=== PATIENT | male | born 1945 | race Caucasian/White ===

== ENCOUNTER → 2016-10-28 | Outpatient (CLI) | payer MEDICARE, OTHER ==
[2016-10-28 12:26] LABS: Basophils # (auto) 0 uL; Basophils % (auto) 0.4 % (0.0-2.0); Eosinophils # (auto) 0.3 uL; Eosinophils % (auto) 4.6 % (0.0-7.0); Hematocrit 44.6 % (41.0-53.0); Hemoglobin 14.5 g/dL (13.5-17.5); Lymphocytes # (auto) 1.3 uL; Lymphocytes % (auto) 22.3 % (10.0-50.0); Mean Corpuscular Hemoglobin 30.3 pg (28.0-32.0); Mean Corpuscular Hgb Conc. 32.5 g/dL (32.0-36.0); Mean Corpuscular Volume 93.1 fL (80.0-100.0); Mean Platelet Volume 9.5 fL (7.4-10.4); Monocytes # (auto) 0.3 uL; Monocytes % (auto) 5.1 % (0.0-12.0); Neutrophils # (auto) 3.8 uL; Neutrophils % (auto) 67.6 % (37.0-80.0); Platelet Count (auto) 248 10^3/uL (140-450); Red Cell Distribution Width 13.5 % (11.6-16.0); White Blood Cell 5.7 10^3/uL (4.4-10.8)
[2016-10-28 12:27] LABS: Urine Bilirubin Negative (Negative); Urine Blood Negative /uL (Negative); Urine Color Yellow (Yellow); Urine Glucose Normal (Normal); Urine Ketone Negative (Negative); Urine Nitrite Negative (Negative); Urine Urobilinogen Normal (Negative); Urine pH 5.5 (5.0-8.0)
[2016-10-28 12:46] LABS: Albumin 3.4 g/dL (3.4-5.0); BUN/Creatinine Ratio 18.4; Bilirubin, Direct 0.2 mg/dL (0-0.2); Bilirubin, Total 0.7 mg/dL (0.2-1.0); Calcium 8.5 mg/dL (8.5-10.1); Potassium 4.6 mmol/L (3.5-5.1)
== END | disposition home or self-care (01) ==
LOC: LAB 08:05
PROVIDERS: ATTEND Internal Medicine Cardiovascular Disease
DX: I10 Essential (primary) hypertension (principal); E78.00 Pure hypercholesterolemia, unspecified; K74.1 Hepatic sclerosis; E11.9 Type 2 diabetes mellitus without complications; R97.20 Elevated prostate specific antigen [PSA]; R53.81 Other malaise; E03.9 Hypothyroidism, unspecified; D64.9 Anemia, unspecified; E55.9 Vitamin D deficiency, unspecified; N39.0 Urinary tract infection, site not specified
CPT/HCPCS: 36415; 80048; 80061; 80076; 81003; 82306; 83036; 84153; 84403; 84443; 85025

== ENCOUNTER → 2016-12-14 | Outpatient (CLI) | payer MEDICARE, OTHER ==
[2016-12-14 13:59] LABS: Albumin 3.3 g/dL (3.4-5.0); Bilirubin, Direct 0.1 mg/dL (0-0.2); Bilirubin, Total 0.5 mg/dL (0.2-1.0); Total Protein 6.5 g/dL (6.4-8.2)
== END | disposition home or self-care (01) ==
LOC: LAB 08:58
PROVIDERS: ATTEND Internal Medicine Cardiovascular Disease
DX: E78.00 Pure hypercholesterolemia, unspecified (principal); K74.1 Hepatic sclerosis
CPT/HCPCS: 36415; 80061; 80076

== ENCOUNTER → 2019-08-09 | Outpatient (CLI) | payer MEDICARE ==
[2019-08-09 13:05] LABS: Albumin 3.4 g/dL (3.4-5.0); Bilirubin, Direct 0.2 mg/dL (0-0.2); Bilirubin, Total 0.8 mg/dL (0.2-1.0); Total Protein 6.6 g/dL (6.4-8.2)
== END | disposition home or self-care (01) ==
LOC: LAB 08:04
PROVIDERS: ATTEND Internal Medicine
DX: E78.5 Hyperlipidemia, unspecified (principal)
CPT/HCPCS: 36415; 80061; 80076

== ENCOUNTER 2024-12-02 05:37 | Inpatient (IN) | payer MEDICARE ==
[~2024-12-02] VITALS: Ht 177.8 cm; Wt 70.6 kg
[2024-12-02] MEDS: SODIUM CHLORIDE 0.9% 1,000 ML IV ONE ×2 (06:58→09:31)
[2024-12-02] MEDS: ASPirin 81 mg TAB PO ONE (06:59)
--- NOTE | 2024-12-02 07:16 | ED.PDOC ---
SOB-HPI HPI Comments 79M presents to the ER in a wheelchair being pushed by spouse and the w/ no prior MHx for which the c/c of SOB. Pt reports that he has been having SOB w/ dizziness since Wednesday of 11/29/24 and stated on not being able to lay down due from SOB worsening as well as not being able to sleep from the sleep worsening the SOB. They are a poor Hx. Denies chills, fever, N/V/D, CP. Denies any other associated symptom's, modifiers, or recent injuries or sick contact at this time. Chief Complaint: Shortness of Breath Time Seen by MD: 06:45 Reviewed notes: Nurses Notes, Medications, Allergies Information Source: Patient, Spouse Mode of Arrival: Wheelchair Severity: Moderate Timing: Days Duration: Since onset, Days Context: At Rest, While Asleep PE Risk Factors: None History of: None Prehospital treatment: None Modifying Factors: Laying flat, Rest Associated Signs and Symptoms: None If cough with SOB: Non-Productive Past Medical History PAST MEDICAL HISTORY: Denies Surgical History: Denies all surgeries Family History Family History: Reviewed,noncontributory to illness, Unknown Social History Smoker: Non-Smoker Alcohol: Denies ETOH Use Drugs: Denies Drug Use Lives In: Home Constitutional: denies: chills, diaphoresis, fatigue, fever, malaise, sweats, weakness, others EENTM: denies: blurred vision, double vision, ear bleeding, ear discharge, ear drainage, ear pain, ear ringing, eye pain, eye redness, hearing loss, mouth pain, mouth swelling, nasal discharge, nose bleeding, nose congestion, nose pain, photophobia, tearing, throat pain, throat swelling, voice changes, others Respiratory: reports: SOB at rest, shortness of breath; denies: cough, hemoptysis, orthopnea, SOB with excertion, stridor, wheezing, others Cardiovascular: denies: chest pain, dizzy spells, diaphoresis, Dyspnea on exertion, edema, irregular heart beat, left arm pain, lightheadedness, palpitations, PND, syncope, others Gastrointestinal: denies: abdomen distended, abdominal pain, blood streaked bowels, constipated, diarrhea, dysphagia, difficulty swallowing, hematemesis, melena, nausea, poor appetite, poor fluid intake, rectal bleeding, rectal pain, vomiting, others Genitourinary: denies: burning, dysuria, flank pain, frequency, hematuria, incontinence, penile discharge, penile sore, pain, testicle pain, testicle swelling, urgency, others Neurological: reports: dizziness; denies: fainting, headache, left sided numbness, left sided weakness, numbness, paresthesia, pre-existing deficit, right sided numbness, right sided weakness, seizure, speech problems, tingling, tremors, weakness, others Musculoskeletal: denies: back pain, gout, joint pain, joint swelling, muscle pain, muscle stiffness, neck pain, others Integumetry: denies: bruises, change in color, change in hair/nails, dryness, laceration, lesions, lumps, rash, wounds, others Allergic/Immunocompromised: denies: Difficulty Healing, Frequent Infections, Hives, Itching, others Hematologic/Lymphatic: denies: anemia, blood clots, easy bleeding, easy bruising, swollen glands, others Endocrine: denies: excessive hunger, excessive sweating, excessive thirst, excessive urination, flushing, intolerance to cold, intolerance to heat, unexp lained weight gain, unexplained weight loss, others Psychiatric: denies: anxiety, bipolar disorder, depression, hopeless, panic disorder, schizophrenia, sleepless, suicidal, others All Other Systems: Reviewed and Negative Physical Exam General Appearance: Moderate Distress, Normal HEENT: Normal ENT Inspection, PERRL/EOMI, Pharynx Normal, TMs Normal Neck: Full Range of Motion, Non-Tender, Normal, Normal Inspection Respiratory: Chest Non-Tender, Decreased Breath Sounds, Expiration, Inspiration , No Accessory Muscle Use, Normal Breath Sounds, Respiratory Distress, Rhonchi Cardiovascular: No Edema, No JVD, No Murmur, No Gallop, Normal Peripheral Pulses, Regular Rate/Rhythm, Tachycardia Breast Exam: Deferred Gastrointestinal: No Organomegaly, Non Tender, No Pulsatile Mass, Normal Bowel Sounds, Soft Genitalia: Deferred Pelvic: Deferred Rectal: Deferred Extremities: No calf tenderness, Normal capillary refill, Normal inspection, Normal range of motion, Non-tender, No pedal edema Musculoskeletal : Apperance: Normal Neurologic: Alert, net making supervisor II-XII nml as Tested, No Motor Deficits, Normal Affect, Normal Mood, No Sensory Deficits Cerebellar Function: Normal Reflexes: Normal Skin: Dry, Normal Color, Warm Peripheral Pulses: 1+ carotid (R), 1+ carotid (L) Lymphatic: No Adenopathy EKG EKG : Pulse Rate (adult): 101 [place]: Normal Cardiac Rhythm: NSR, PAC's Was a procedure done? Was a procedure done?: No Differential Dx Differential Diagnosis: Anxiety, CHF, COPD, Dysrhythmia, Hypertension, Hyperventilation, Hyponatremia, Pneumonia, Pulmonary Embolism, Respiratory Distress X-Ray, Labs, Meds, VS Vital Signs Date Time Temp Pulse Resp B/P (MAP) Pulse Ox O2 Delivery O2 Flow Rate FiO2 12/02/24 08:40 Nasal Cannula* 2 28 12/02/24 08:40 Nasal Cannula* 2 28 12/02/24 08:20 101 12/02/24 07:37 66 18 99 Nasal Cannula 2.0 12/02/24 07:37 66 18 129/93 (105) 99 12/02/24 07:05 98.3 59 17 97/59 (72) 96 98.3 12/02/24 05:45 97.1 68 16 128/110 (116) 95 97.1 Lab Test 12/02/24 07:20 Range/Units White Blood Count 11.6 H 4.4-10.8 10^3/uL Red Blood Count 5.25 4.5-5.90 10^6/uL Hemoglobin 16.0 13.5-17.5 g/dL Hematocrit 48.5 41.0-53.0 % Mean Corpuscular Volume 92.3 80.0-100.0 fL Mean Corpuscular Hemoglobin 30.4 28.0-32.0 pg Mean Corpuscular Hemoglobin Concent 32.9 32.0-36.0 g/dL Red Cell Distribution Width 13.7 11.8-14.3 % Platelet Count 219 140-450 10^3/uL Mean Platelet Volume 8.6 6.9-10.8 fL Neutrophils (%) (Auto) 83.9 H 37.0-80.0 % Lymphocytes (%) (Auto) 9.3 L 10.0-50.0 % Monocytes (%) (Auto) 5.5 0.0-12.0 % Eosinophils (%) (Auto) 0.8 0.0-7.0 % Basophils (%) (Auto) 0.5 0.0-2.0 % Neutrophils # (Auto) 9.7 H 1.6-8.6 10 ^3/uL Lymphocytes # (Auto) 1.1 0.4-5.4 10 ^3/uL Monocytes # (Auto) 0.6 0-1.3 10 ^3/uL Eosinophils # (Auto) 0.1 0-0.8 10 ^3/uL Basophils # (Auto) 0.1 0-0.2 10 ^3/uL Nucleated Red Blood Cells 0.1 % Prothrombin Time 11.0 9.3-11.8 sec Prothrombin Time INR 1.04 0.9-1.15 Activated Partial Thromboplast Time 27.6 24.5-34.5 SEC D-Dimer, Quantitative 20.44 H 0.0-0.49 mg/L FEU Sodium Level 137 136-145 mmol/L Potassium Level 4.9 3.5-5.1 mmol/L Chloride Level 106 98-107 mmol/L Carbon Dioxide Level 22 20-31 mmol/L Anion Gap 9 5-15 Blood Urea Nitrogen 20 9-23 mg/dL Creatinine 1.66 H 0.700-1.30 mg/dL Glomerular Filtration Rate Calc 41 >90 mL/min BUN/Creatinine Ratio 12.0 10.0-20.0 Serum Glucose 145 H 74-106 mg/dL Calcium Level 9.6 8.7-10.4 mg/dL Magnesium Level 2.0 1.6-2.6 mg/dL Total Bilirubin 0.7 0.2-1.0 mg/dL Aspartate Amino Transferase (AST) 14 13-40 U/L Alanine Aminotransferase (ALT) < 9 7-40 U/L Alkaline Phosphatase 87 46-116 U/L Troponin I High Sensitivity 372 *H </=54 ng/L B-Type Natriuretic Peptide 283.09 0-100 pg/mL Total Protein 7.4 5.7-8.2 g/dL Albumin 4.4 3.2-4.8 g/dL Current Medications Medications (Trade) Dose Ordered Sig/Artemio Route Start Time Stop Time Status Last Admin Aspirin 162 mg ONCE ONCE PO 12/02/24 06:45 12/02/24 06:48 DC 12/02/24 06:59 Sodium Chloride 1,000 ml @ 30 mls/hr Q24H ONCE IV 12/02/24 09:30 12/03/24 09:29 12/02/24 09:31 X-Ray, Labs, Meds, VS Comment Course in the emergency department eventful patient came in complaining of shortness of breath with a past three days with a dizziness and active the orthopnea blood pressure 128/110 Chest x-ray is normal EKG shows sinus tachycardia at 1:[address] with multiple PACs CT angiogram shows multiple pulmonary embolism CBC [id number] with 84% neutrophils normal H&H CMP GFR at 41 rest normal Troponin 372 elevated BNP 283.09 Magnesium 2.0 INR 1.07 D-dimer 20 four for Patient will be admitted to ICU for further care Time of 1ST Reevaluation: 07:15 Reevaluation 1ST: Unchanged Reevaluation 2ND: Unchanged Patient Education/Counseling: Diagnosis, Treatment, Prognosis Family Education/Counseling: Diagnosis, Treatment, Prognosis Departure 1 Departure Time of Disposition: 09:41 Impression: Primary Impression: Acute dyspnea Additional Impressions: Pulmonary embolism Qualified Codes: I26.94 - Multiple subsegmental thrombotic pulmonary emboli without acute cor pulmonale Elevated troponin I level Elevated d-dimer Disposition: ADMITTED INPATIENT Admit to: ICU Condition: Critical Critical Care Note Critical Care Time?: Yes (30 min-critical care time only) Stability Stability form required: Yes Unstable for transfer: ICU, CCU, PCU, FLOR (Intensive VS monitoring), Requires medication (Requires Med for stabilization) Heart Score Heart Score: Heart Score Response (Comments) Value History Moderate Suspicious 1 EKG Repolarization Disturb 1 Age >65 2 Risk Factors 1 or 2 risk factors 1 Troponin >3 x's Normal limit 2 Total 7 I personally scribed for JOHN THOMAS MD ([email or web address]) on 12/02/24 at 07:16. Electronically submitted by Rodrigo Piedra ([email or web address]). JOHN THOMAS MD December 02, 2024 07:16
--- NOTE | 2024-12-02 07:30 | DVH ---
EXAM: XR Chest, 2 Views CLINICAL INDICATION: sob TECHNIQUE: Frontal and lateral views of the chest. COMPARISON: None FINDINGS: LUNGS AND PLEURAL SPACES: Unremarkable. No consolidation. No pneumothorax. HEART: Unremarkable. No cardiomegaly. MEDIASTINUM: Unremarkable. Normal mediastinal contour. BONES/JOINTS: Unremarkable. No acute fracture. OTHER FINDINGS: . IMPRESSION: No acute cardiopulmonary process.
[2024-12-02 07:37] LABS: Basophils # (auto) 0.1 10 ^3/uL (0-0.2); Basophils % (auto) 0.5 % (0.0-2.0); Eosinophils # (auto) 0.1 10 ^3/uL (0-0.8); Eosinophils % (auto) 0.8 % (0.0-7.0); Hematocrit 48.5 % (41.0-53.0); Lymphocytes # (auto) 1.1 10 ^3/uL (0.4-5.4); Lymphocytes % (auto) 9.3 % (10.0-50.0); Mean Corpuscular Hemoglobin 30.4 pg (28.0-32.0); Mean Corpuscular Hgb Conc. 32.9 g/dL (32.0-36.0); Mean Corpuscular Volume 92.3 fL (80.0-100.0); Monocytes # (auto) 0.6 10 ^3/uL (0-1.3); Monocytes % (auto) 5.5 % (0.0-12.0); Neutrophils # (auto) 9.7 10 ^3/uL (1.6-8.6); Neutrophils % (auto) 83.9 % (37.0-80.0); Nucleated Red Blood Cells % 0.1 %; Platelet Count (auto) 219 10^3/uL (140-450); Red Blood Cells 5.25 10^6/uL (4.5-5.90); Red Cell Distribution Width 13.7 % (11.8-14.3); White Blood Cell 11.6 10^3/uL (4.4-10.8)
[2024-12-02 07:49] LABS: Alanine Aminotransferase < 9 U/L (7-40); Albumin 4.4 g/dL (3.2-4.8); Alkaline Phosphatase 87 U/L (46-116); Anion Gap 9 (5-15); Aspartate Aminotransferase 14 U/L (13-40); Bilirubin, Total 0.7 mg/dL (0.2-1.0); Blood Urea Nitrogen 20 mg/dL (9-23); Calcium 9.6 mg/dL (8.7-10.4); Carbon Dioxide 22 mmol/L (20-31); Chloride 106 mmol/L (98-107); Glucose 145 mg/dL (74-106); Potassium 4.9 mmol/L (3.5-5.1); Sodium 137 mmol/L (136-145); Total Protein 7.4 g/dL (5.7-8.2)
[2024-12-02 07:57] LABS: INR 1.04 (0.9-1.15); Partial Thromboplastin Time 27.6 SEC (24.5-34.5)
[2024-12-02] MEDS: IOHEXOL 350 MG/ML 100ML IJ ONE (09:01)
[2024-12-02] MEDS ORDERED: ACETAMINOPHEN 325 MG TAB PO PRN (09:30)
[2024-12-02] MEDS ORDERED: MORPHINE SULFATE INJ 2 MG/ml SYRG IV PRN ×2 (09:30)
[2024-12-02] MEDS ORDERED: ONDANSETRON HCL 4 MG/2 ML VIAL IV PRN (09:30)
[2024-12-02] MEDS ORDERED: NITROGLYCERIN 0.4 MG SL TAB SL PRN (09:30)
[2024-12-02] MEDS ORDERED: HYDROcodone-ACET 5/325MG TAB PO PRN (09:30)
--- NOTE | 2024-12-02 09:31 | DVH ---
EXAM: CT Angiography Chest With Intravenous Contrast CLINICAL INDICATION: Pulmonary embolism TECHNIQUE: Axial computed tomographic angiography images of the chest with intravenous contrast. is CT exam was performed using one or more of the following dose reduction techniques: automated exp osure control, adjustment of the mA and/or kV according to patient size, and/or use of iterative ofelia nstruction technique. MIP reconstructed images were created and reviewed. CONTRAST: RADIATION DOSE: CTDIvol = 20.72 mGy, DLP = 342.36 mGy-cm COMPARISON: None FINDINGS: PULMONARY ARTERIES: Multiple bilateral pulmonary emboli. AORTA: No acute findings. No thoracic aortic aneurysm. LUNGS AND PLEURAL SPACES: Emphysema/COPD. No mass. No consolidation. No significant effusion. N o pneumothorax. HEART: Unremarkable. No cardiomegaly. No significant pericardial effusion. No evidence of RV dys function. MEDIASTINUM: Scattered mediastinal lymph nodes some of which are upper limits of normal in size and are most likely reactive lymph nodes. BONES/JOINTS: No acute fracture. No dislocation. SOFT TISSUES: Unremarkable. LYMPH NODES: See above. OTHER FINDINGS: . . IMPRESSION: 1. Multiple bilateral pulmonary emboli. 2. Scattered mediastinal lymph nodes some of which are upper limits of normal in size and are most l ikely reactive lymph nodes. Findings were discussed with Dr. Huff by phone on 12/02/2024 at 9:29 a.m..
[2024-12-02] MEDS ORDERED: HEPARIN DRIP/D5W 100UNITS/ML 250 ML IV SCH (09:45)
[2024-12-02] MEDS: HEPARIN SODIUM (PORCINE) 5000 UNITS/ML 1ML VIAL IV ONE (09:45)
[2024-12-02] MEDS: AZITHROMYCIN 500MG/ 250ML 250 ML IV SCH (10:00)
--- NOTE | 2024-12-02 10:09 | CONS ---
Pharmacy Clinical Information: HEPARIN DRIP INITIATED AT RATE 1300 UNITS/HR = 13 ML/HR PER PATIENT WEIGHT 7 4.8KG (BED SCALE), PE PROTOCOL CONFIRMED WITH TIFFANY BOONE APTT DRAW SCHEDULED FOR 1600 PER RX PROTOCOL REDD ZENG PHARMACIST December 02, 2024 10:09
--- NOTE | 2024-12-02 10:45 | DVHHP2 ---
History of Present Illness Reason for Visit: SOB History of Present Illness Saud Zelaya is an 79-year-old male with no past medical history who presents to the ED with shortness of breath since Wednesday. Patient reports that he is unable to sleep and lie down flat due to the shortness of breath as well as walk as he gets winded pretty quickly. Patient's brought him in in a wheelchair. Patient reports that he does not use oxygen at home however upon examination patient on 2 L nasal cannula. Patient also has not been to a PCP in the last 5 years. Patient reports that his dad from liver cancer in his sister also had lung cancer and at the age of 22. Patient's also states that he only takes multivitamins. Patient's spouse also at the bedside. Patient reports that he was in the [place]. Patient denies any chest pain, recent sick contacts, recent travels, recent ingestion of spoiled food, recent trauma or injury, abdominal pain, nausea, vomiting, diarrhea, lightheadedness, weakness, or dizziness. Patient reported that he has epistaxis in his right naris once per month and has pressure in his head when he does get them. However currently he is not complaining of these symptoms. Past Surgical History: None Family History: Cancer, Other (Dad with liver cancer and . Sister with the lung cancer and .) Smoke: No ALCOHOL: none Drugs: None Lives: with Family Domestic Violence: Neg Review of Systems Respiratory: Shortness of breath Allergies: Coded Allergies: NO KNOWN ALLERGIES (Unverified , 12/02/24) Medications Current Medications Medications Dose Ordered Sig/Artemio Route Start Time Stop Time Status Last Admin Dose Admin Heparin Sodium/ Dextrose 250 ml @ 12.87 mls/ hr [id number] IV 12/02/24 09:45 UNV Heparin Sodium/ Dextrose 250 ml @ 13 mls/hr [id number] IV 12/02/24 10:15 Acetaminophen/ Hydrocodone Bitart 1 tab Q4HP PRN PO 12/02/24 09:30 UNV Ondansetron HCl 4 mg Q4HP PRN IV 12/02/24 09:30 UNV Acetaminophen 650 mg Q6HP PRN PO 12/02/24 09:30 UNV Morphine Sulfate 2 mg Q4HPRN PRN IV 12/02/24 09:30 UNV Nitroglycerin 0.4 mg Q5MINP PRN SL 12/02/24 09:30 UNV Morphine Sulfate 2 mg Q30M PRN IV 12/02/24 09:30 UNV Ceftriaxone Sodium 50 ml @ 100 mls/hr DAILY@09 IV 12/02/24 09:30 UNV Azithromycin 250 ml @ 125 mls/hr DAILY IV 12/02/24 09:30 UNV Exam Vital Signs Vital Signs Date Time Temp Pulse Resp B/P (MAP) Pulse Ox O2 Delivery O2 Flow Rate FiO2 12/02/24 09:44 101 12/02/24 08:40 Nasal Cannula* 2 28 12/02/24 07:37 18 99 12/02/24 07:37 129/93 (105) 12/02/24 07:05 98.3 98.3 General Appearance: Alert, Oriented X3, Cooperative, mild distress HEENT: Atraumatic, PERRLA, EOMI, Mucous membr. moist/pink Respiratory: Normal air movement Cardiovascular: Normal S1, Normal S2, No murmurs Abdominal: Soft Extremities: Normal pulses Skin: No significant lesion Neuro: Normal gait, Normal speech, Normal tone, Sensation intact Psych/Mental Status: Mental status NL, Mood NL Labs/Xrays Labs Test 12/02/24 07:20 Range/Units White Blood Count 11.6 H 4.4-10.8 10^3/uL Red Blood Count 5.25 4.5-5.90 10^6/uL Hemoglobin 16.0 13.5-17.5 g/dL Hematocrit 48.5 41.0-53.0 % Mean Corpuscular Volume 92.3 80.0-100.0 fL Mean Corpuscular Hemoglobin 30.4 28.0-32.0 pg Mean Corpuscular Hemoglobin Concent 32.9 32.0-36.0 g/dL Red Cell Distribution Width 13.7 11.8-14.3 % Platelet Count 219 140-450 10^3/uL Mean Platelet Volume 8.6 6.9-10.8 fL Neutrophils (%) (Auto) 83.9 H 37.0-80.0 % Lymphocytes (%) (Auto) 9.3 L 10.0-50.0 % Monocytes (%) (Auto) 5.5 0.0-12.0 % Eosinophils (%) (Auto) 0.8 0.0-7.0 % Basophils (%) (Auto) 0.5 0.0-2.0 % Neutrophils # (Auto) 9.7 H 1.6-8.6 10 ^3/uL Lymphocytes # (Auto) 1.1 0.4-5.4 10 ^3/uL Monocytes # (Auto) 0.6 0-1.3 10 ^3/uL Eosinophils # (Auto) 0.1 0-0.8 10 ^3/uL Basophils # (Auto) 0.1 0-0.2 10 ^3/uL Nucleated Red Blood Cells 0.1 % Prothrombin Time 11.0 9.3-11.8 sec Prothrombin Time INR 1.04 0.9-1.15 Activated Partial Thromboplast Time 27.6 24.5-34.5 SEC D-Dimer, Quantitative 20.44 H 0.0-0.49 mg/L FEU Sodium Level 137 136-145 mmol/L Potassium Level 4.9 3.5-5.1 mmol/L Chloride Level 106 98-107 mmol/L Carbon Dioxide Level 22 20-31 mmol/L Anion Gap 9 5-15 Blood Urea Nitrogen 20 9-23 mg/dL Creatinine 1.66 H 0.700-1.30 mg/dL Glomerular Filtration Rate Calc 41 >90 mL/min BUN/Creatinine Ratio 12.0 10.0-20.0 Serum Glucose 145 H 74-106 mg/dL Calcium Level 9.6 8.7-10.4 mg/dL Magnesium Level 2.0 1.6-2.6 mg/dL Total Bilirubin 0.7 0.2-1.0 mg/dL Aspartate Amino Transferase (AST) 14 13-40 U/L Alanine Aminotransferase (ALT) < 9 7-40 U/L Alkaline Phosphatase 87 46-116 U/L Troponin I High Sensitivity 372 *H </=54 ng/L B-Type Natriuretic Peptide 283.09 0-100 pg/mL Total Protein 7.4 5.7-8.2 g/dL Albumin 4.4 3.2-4.8 g/dL EXAM: CT Angiography Chest With Intravenous Contrast CLINICAL INDICATION: Pulmonary embolism TECHNIQUE: Axial computed tomographic angiography images of the chest with intravenous contrast. This CT exam was performed using one or more of the following dose reduction techniques: automated exposure control, adjustment of the mA and/or kV according to patient size, and/or use of iterative reconstruction technique. MIP reconstructed images were created and reviewed. CONTRAST: RADIATION DOSE: CTDIvol = 20.72 mGy, DLP = 342.36 mGy-cm COMPARISON: None FINDINGS: PULMONARY ARTERIES: Multiple bilateral pulmonary emboli. AORTA: No acute findings. No thoracic aortic aneurysm. LUNGS AND PLEURAL SPACES: Emphysema/COPD. No mass. No consolidation. No significant effusion. No pneumothorax. HEART: Unremarkable. No cardiomegaly. No significant pericardial effusion. No evidence of RV dysfunction. MEDIASTINUM: Scattered mediastinal lymph nodes some of which are upper limits of normal in size and are most likely reactive lymph nodes. BONES/JOINTS: No acute fracture. No dislocation. SOFT TISSUES: Unremarkable. LYMPH NODES: See above. OTHER FINDINGS: . . IMPRESSION: 1. Multiple bilateral pulmonary emboli. 2. Scattered mediastinal lymph nodes some of which are upper limits of normal in size and are most likely reactive lymph nodes. EXAM: XR Chest, 2 Views CLINICAL INDICATION: sob TECHNIQUE: Frontal and lateral views of the chest. COMPARISON: None FINDINGS: LUNGS AND PLEURAL SPACES: Unremarkable. No consolidation. No pneumothorax. HEART: Unremarkable. No cardiomegaly. MEDIASTINUM: Unremarkable. Normal mediastinal contour. BONES/JOINTS: Unremarkable. No acute fracture. OTHER FINDINGS: . IMPRESSION: No acute cardiopulmonary process. Assessment/Plan Assessment/Plan Assessment Elevated troponins Shortness of breath due to multiple bilateral PE Scattered mediastinal lymph nodes likely reactive [place] Acute hypoxic respiratory failure History of epistaxis Plan Admit to tele Heparin drip CTA chest noted Elevated D-dimer Chest x-ray noted Trend troponins NS 1 L given ED Aspirin given in ED EKG noted BNP Mag level IV antibiotics-ceftriaxone + azithromycin CA 19-9 CEA ESR CRP LDH Lactic Blood cultures UA Diet Per patient no home medications that he takes DVT prophylaxis-patient on heparin drip PUD prophylaxis-not indicated no history of GERD or GI bleed Discussed plan of care with patient, patient's spouse, and nurse IR consulted for thrombectomy possibly Rounding hospitalist if troponin's elevate then consider consult Cardiology Plan discussed with: Patient My Orders Orders - MARY JANE ABDALLA Procedure Category Date Status Time Admit ADMIT 12/02/24 Transmitted 09:20 Allergies WADE 12/02/24 In Process 09:20 Code Status CODE 12/02/24 Transmitted 09:20 Hydrocodone-Acet PHA 12/02/24 In Process 5/325mg Tab ([place] 09:30 Ondansetron Hcl PHA 12/02/24 In Process (Zofran) 09:30 Comprehensive LAB 12/03/24 Verified Metabolic Panel 04:00 Acetaminophen Tablet PHA 12/02/24 In Process (Tylenol Tablet) 09:30 Morphine Sulfate PHA 12/02/24 In Process Injection 09:30 Nitroglycerin PHA 12/02/24 In Process Sublingual (Ntrostat 09:30 Morphine Sulfate PHA 12/02/24 In Process Injection 09:30 Stat Ekg For Chest WADE 12/02/24 In Process Pain 09:20 Notify Md Of Changes WADE 12/02/24 In Process From Base 09:20 Boom Cat Operator For WADE 12/02/24 In Process 24 Hours 09:20 Emergency Dysrhythmia WADE 12/02/24 In Process Protocol 09:20 Rhythm Strips Once WADE 12/02/24 In Process Every Shift 09:20 Oxygen By Nasal RT 12/02/24 Transmitted Cannula 09:20 Ceftriaxone 1gm/50ml PHA 12/02/24 In Process D5w (Rocephin) 09:30 Azithromycin 500mg/ PHA 12/02/24 In Process 250ml (Zithromax 50 09:30 * Radiologist Consult CONS 12/02/24 Transmitted 10:18 Troponin-I Hs LAB 12/02/24 Logged 10:25 Troponin-I Hs LAB 12/02/24 Logged 11:25 Troponin-I Hs LAB 12/02/24 Logged 13:25 Lactate Dehydrogenase LAB 12/02/24 Logged 10:26 Lactic Acid W/ Reflex LAB 12/02/24 Logged Order 10:26 Erythrocyte LAB 12/02/24 Logged Sedimentation Rate 10:26 C-Reactive Protein LAB 12/02/24 Logged 10:26 Blood Culture BRYAN 12/02/24 Logged 10:26 Carcinoembryonic LAB 12/02/24 Transmitted Antigen 10:28 Carbohydrate Antigen LAB 12/02/24 Transmitted 19-9 Urinalysis LAB 12/02/24 Transmitted 10:28 Date of Service: December 02, 2024 Billing Provider: MARY JANE ABDALLA Common Visit Codes: [id number] INP/OBS CARE (HIGH) MARY JANE ABDALLA SENIOR MICROSTRATEGY DEVELOPER December 02, 2024 10:45
[2024-12-02 11:13] LABS: Erythrocyte Sedimentation Rate 10 mm/hr (0-20)
[2024-12-02] MEDS: cefTRIAXone 1GM/50ML D5W 50 ML IV SCH (12:00)
[2024-12-02] MEDS: HEPARIN DRIP/D5W 100UNITS/ML 250 ML IV SCH ×3 (12:09→23:50)
[2024-12-02 16:05] VITALS: BP 118/84; PULSE 63; RESP 16; TEMP 98; O2SAT 98
[2024-12-02 16:24] LABS: INR 1.07 (0.9-1.15); Partial Thromboplastin Time 46.7 SEC (24.5-34.5); Prothrombin Time 11.3 sec (9.3-11.8)
--- NOTE | 2024-12-02 16:43 | CONS ---
Pharmacy Clinical Information: INCREASE HEPARIN DRIP RATE TO 1500 UNITS/HR = 15 ML/HR PER APTT OF 46.7 (SUB THERAPEUTIC). NEXT APTT DRAW SCHEDULED FOR 2300 PER RX PROTOCOL. REDD ZENG PHARMACIST December 02, 2024 16:43
[2024-12-02 20:00] VITALS: PULSE 108; PULSE 86; RESP 18
[2024-12-02 21:00] VITALS: BP 121/84; PULSE 63; RESP 19; TEMP 98.1; O2SAT 97
[2024-12-02 23:24] LABS: INR 1.07 (0.9-1.15); Prothrombin Time 11.3 sec (9.3-11.8)
[2024-12-02 23:28] LABS: Partial Thromboplastin Time 77.2 SEC (24.5-34.5)
[2024-12-03] VITALS (9 sets, daily range): BP systolic 108–168; BP diastolic 86–105; PULSE 50–147; RESP 14–20; TEMP 97.5–98.3; O2SAT 94–99
[2024-12-03 06:31] LABS: Basophils # (auto) 0.1 10 ^3/uL (0-0.2); Basophils % (auto) 0.8 % (0.0-2.0); Eosinophils # (auto) 0.3 10 ^3/uL (0-0.8); Hematocrit 41.1 % (41.0-53.0); Hemoglobin 13.9 g/dL (13.5-17.5); Lymphocytes # (auto) 2.2 10 ^3/uL (0.4-5.4); Lymphocytes % (auto) 25.8 % (10.0-50.0); Mean Corpuscular Hgb Conc. 33.9 g/dL (32.0-36.0); Mean Corpuscular Volume 91.6 fL (80.0-100.0); Monocytes # (auto) 0.6 10 ^3/uL (0-1.3); Monocytes % (auto) 7.2 % (0.0-12.0); Neutrophils # (auto) 5.3 10 ^3/uL (1.6-8.6); Neutrophils % (auto) 63.2 % (37.0-80.0); Platelet Count (auto) 174 10^3/uL (140-450); Red Blood Cells 4.49 10^6/uL (4.5-5.90); Red Cell Distribution Width 13.8 % (11.8-14.3); White Blood Cell 8.5 10^3/uL (4.4-10.8)
[2024-12-03 06:44] LABS: INR 1.07 (0.9-1.15); Partial Thromboplastin Time 66.3 SEC (24.5-34.5); Prothrombin Time 11.3 sec (9.3-11.8)
[2024-12-03 06:51] LABS: Alanine Aminotransferase 10 U/L (7-40); Albumin 3.8 g/dL (3.2-4.8); Alkaline Phosphatase 73 U/L (46-116); Anion Gap 6 (5-15); Aspartate Aminotransferase 15 U/L (13-40); BUN/Creatinine Ratio 18.5 (10.0-20.0); Bilirubin, Total 0.6 mg/dL (0.2-1.0); Blood Urea Nitrogen 23 mg/dL (9-23); Calcium 8.9 mg/dL (8.7-10.4); Carbon Dioxide 27 mmol/L (20-31); Chloride 109 mmol/L (98-107); Glucose 108 mg/dL (74-106); Potassium 4.4 mmol/L (3.5-5.1); Sodium 142 mmol/L (136-145); Total Protein 6.2 g/dL (5.7-8.2)
[2024-12-03] MEDS: HEPARIN DRIP/D5W 100UNITS/ML 250 ML IV SCH (07:13)
--- NOTE | 2024-12-03 10:35 | ECG ---
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
[2024-12-03 11:44] LABS: INR 1.05 (0.9-1.15); Partial Thromboplastin Time 65.3 SEC (24.5-34.5); Prothrombin Time 11.1 sec (9.3-11.8)
--- NOTE | 2024-12-03 13:47 | DVHPN2 ---
Reviewed: Care Plan, H&P, Labs, Medications, Previous Orders, Radiology Changes from previous H/P or p: No Changes Respiratory: Shortness of breath Objective Vitals Vital Signs Date Time Temp Pulse Resp B/P (MAP) Pulse Ox O2 Delivery O2 Flow Rate FiO2 12/03/24 13:00 98.1 81 14 149/86 (107) 97 98.1 12/03/24 08:00 Nasal Cannula* 3 32 Intake/Output Intake and Output 12/03/24 07:00 Intake Total 400 ml Output Total 350 ml Balance 50 ml Intake Oral 400 ml Output Urine Total 350 ml # Voids 1 Medications Current Medications Medications Dose Ordered Sig/Artemio Route Start Time Stop Time Status Last Admin Dose Admin Heparin Sodium/ Dextrose 250 ml @ 12.87 mls/ hr [id number] IV 12/02/24 09:45 UNV Acetaminophen/ Hydrocodone Bitart 1 tab Q4HP PRN PO 12/02/24 09:30 Ondansetron HCl 4 mg Q4HP PRN IV 12/02/24 09:30 Acetaminophen 650 mg Q6HP PRN PO 12/02/24 09:30 Morphine Sulfate 2 mg Q4HPRN PRN IV 12/02/24 09:30 Nitroglycerin 0.4 mg Q5MINP PRN SL 12/02/24 09:30 Morphine Sulfate 2 mg Q30M PRN IV 12/02/24 09:30 Ceftriaxone Sodium 50 ml @ 100 mls/hr DAILY@09 IV 12/02/24 09:30 12/03/24 10:09 100 MLS/HR Azithromycin 250 ml @ 125 mls/hr DAILY IV 12/02/24 09:30 12/03/24 11:14 125 MLS/HR Heparin Sodium/ Dextrose 250 ml @ 13 mls/hr [id number] IV 12/03/24 07:00 12/03/24 07:13 13 MLS/HR Laboratory Results Laboratory Tests 12/03/24 05:09 Chemistry Test 12/03/24 05:09 Albumin 3.8 g/dL (3.2-4.8) Calcium Level 8.9 mg/dL (8.7-10.4) Total Protein 6.2 g/dL (5.7-8.2) Coagulation Test 12/02/24 15:55 12/02/24 22:51 12/03/24 05:09 12/03/24 11:19 Prothrombin Time 11.3 sec (9.3-11.8) 11.3 sec (9.3-11.8) 11.3 sec (9.3-11.8) 11.1 sec (9.3-11.8) Prothrombin Time INR 1.07 (0.9-1.15) 1.07 (0.9-1.15) 1.07 (0.9-1.15) 1.05 (0.9-1.15) Activated Partial Thromboplast Time 46.7 SEC (24.5-34.5) H 77.2 SEC (24.5-34.5) *H 66.3 SEC (24.5-34.5) H 65.3 SEC (24.5-34.5) H LFT Test 12/03/24 05:09 Alanine Aminotransferase (ALT) 10 U/L (7-40) Alkaline Phosphatase 73 U/L (46-116) Aspartate Amino Transferase (AST) 15 U/L (13-40) Total Bilirubin 0.6 mg/dL (0.2-1.0) Microbiology Microbiology Date/Time Source Procedure Growth Status 12/02/24 10:43 Blood Blood Culture - Preliminary NO GROWTH AFTER 24 HOURS OF INCUBATION. Resulted Labs and/or images reviewed: Labs reviewed by me, Image(s) reviewed by me Assessment/Plan Assessment/Plan Acute hypoxic respiratory failure: Oxygen by nasal cannula D-dimer elevated at 20 Acute bilateral pulmonary emboli: Heparin drip per protocol, consult for pulmonology Dr. 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 Barba Sepsis possibly secondary to community-acquired pneumonia: Rocephin azithromycin Noncompliance: Patient has not seen any Dr for the last five years.Seen Dr Aaron five years ago. Justina [phone] bedside Son Ellis [phone] Plan discussed with: Patient My Orders Orders - JOSE EDUARDO ROGERS MD Procedure Category Date Status Time Covid19 Antigen [facility] 12/03/24 Logged Rapid Influenza A&B LAB 12/03/24 Logged 13:23 * Cardiology Consult CONS 12/03/24 Transmitted 13:26 Date of Service: Dec 03, 2024 Billing Provider: JOSE EDUARDO ROGERS MD Common Visit Codes: 45029-YBPIFLFM CARE 30-74 MIN JOSE EDUARDO ROGERS MD Dec 03, 2024 13:46
[2024-12-03 13:56] LABS: Triglycerides 86 mg/dL (< 150)
[2024-12-03 13:58] LABS: Cholesterol 178 mg/dL (< 200)
[2024-12-03 14:03] LABS: HDL Cholesterol 40 mg/dL (40-59); LDL Cholesterol 137 mg/dL (< 100)
--- NOTE | 2024-12-03 14:37 | DVHINCON2 ---
Date of service: Dec 03, [address] clara alvarez Reason for Consultation Pulmonary embolism History of Present Illness HPI Patient is an 79-year-old gentleman with known underlying medical problems who presented with shortness of breath for 5 days' duration also dizziness and feeling off balance. Patient came into the ER where he required supplemental O2 chest x-ray unremarkable. CT angiogram shows bilateral pulmonary emboli and reactive mediastinal lymphadenopathy. Past Medical History Cardiac: No pertinent Hx Pulmonary: No pertinent Hx Central Nervous System: No pertinent Hx GI: No pertinent Hx Hemotology/Oncology: No pertinent Hx Hepatobiliary: No pertinent Hx Psychiatric: No pertinent Hx Musculoskeletal: No pertinent Hx Rheumotologic: No pertinent Hx Infectious Disease: No peritnent Hx ENT: No pertinent Hx Renal/: No pertinent Hx Endocrine: No pertinent Hx Dermatology: No pertinent Hx Past Surgical History: No pertinent Hx Family History: No pertinent Hx Patient Family History: Patient reports no known family medical history. Review of Systems Constitutional: Weakness Ears, Nose, & Throat: No symptom reported Eyes: No symptom reported Pulmonary/Respiratory: Dyspnea Cardiovascular: No symptom reported Gastrointestinal: No symptom reported Genitourinary: No symptom reported Musculoskeletal: No symptom reported Skin: No symptom reported Psychiatric: No symptom reported Endocrine: No symptom reported Hemotologic/Lymphatic: No symptom reported H&P Exam Vital Signs Vital Signs Date Time Temp Pulse Resp B/P (MAP) Pulse Ox O2 Delivery O2 Flow Rate FiO2 12/03/24 13:00 98.1 81 14 149/86 (107) 97 98.1 12/03/24 08:00 Nasal Cannula* 3 32 General Appeara: Well developed, Well nourished, Normal Appearance Head Exam: Normal inspection Neck Exam: Normal inspection, Non-tender, Normal alignment Eye Exam: bilateral eye Normal inspection, bilateral eye PERRL, bilateral eye EOMI Ear Exam: bilateral ear Auricle normal, bilateral ear Canal normal Nasal Exam: Normal inspection Mouth: Normal Inspection Pulmonary/Respiratory: Normal inspection, Normal breath sounds, Chest non- tender Cardiovascular/Chest: Normal inspection Peripheral Pulses: 4+ carotid (R), 4+ carotid (L) Abdominal Exam: Normal bowel sounds Labs/Xrays Labs Test 12/03/24 11:19 12/03/24 05:09 12/02/24 13:23 12/02/24 12:28 Range/Units Prothrombin Time 11.1 9.3-11.8 sec Prothrombin Time INR 1.05 0.9-1.15 Activated Partial Thromboplast Time 65.3 H 24.5-34.5 SEC White Blood Count 8.5 # 4.4-10.8 10^3/uL Red Blood Count 4.49 L 4.5-5.90 10^6/uL Hemoglobin 13.9 13.5-17.5 g/dL Hematocrit 41.1 # 41.0-53.0 % Mean Corpuscular Volume 91.6 80.0-100.0 fL Mean Corpuscular Hemoglobin 31.0 28.0-32.0 pg Mean Corpuscular Hemoglobin Concent 33.9 32.0-36.0 g/dL Red Cell Distribution Width 13.8 11.8-14.3 % Platelet Count 174 140-450 10^3/uL Mean Platelet Volume 9.0 6.9-10.8 fL Neutrophils (%) (Auto) 63.2 37.0-80.0 % Lymphocytes (%) (Auto) 25.8 10.0-50.0 % Monocytes (%) (Auto) 7.2 0.0-12.0 % Eosinophils (%) (Auto) 3.0 0.0-7.0 % Basophils (%) (Auto) 0.8 0.0-2.0 % Neutrophils # (Auto) 5.3 1.6-8.6 10 ^3/uL Lymphocytes # (Auto) 2.2 0.4-5.4 10 ^3/uL Monocytes # (Auto) 0.6 0-1.3 10 ^3/uL Eosinophils # (Auto) 0.3 0-0.8 10 ^3/uL Basophils # (Auto) 0.1 0-0.2 10 ^3/uL Nucleated Red Blood Cells 0.0 % Sodium Level 142 # 136-145 mmol/L Potassium Level 4.4 3.5-5.1 mmol/L Chloride Level 109 H 98-107 mmol/L Carbon Dioxide Level 27 20-31 mmol/L Anion Gap 6 5-15 Blood Urea Nitrogen 23 9-23 mg/dL Creatinine 1.24 0.700-1.30 mg/dL Glomerular Filtration Rate Calc 58 >90 mL/min BUN/Creatinine Ratio 18.5 10.0-20.0 Serum Glucose 108 H 74-106 mg/dL Calcium Level 8.9 8.7-10.4 mg/dL Total Bilirubin 0.6 0.2-1.0 mg/dL Aspartate Amino Transferase (AST) 15 13-40 U/L Alanine Aminotransferase (ALT) 10 7-40 U/L Alkaline Phosphatase 73 46-116 U/L Total Protein 6.2 5.7-8.2 g/dL Albumin 3.8 3.2-4.8 g/dL Triglycerides Level 86 < 150 mg/dL Cholesterol Level 178 < 200 mg/dL LDL Cholesterol 137 H < 100 mg/dL HDL Cholesterol 40 40-59 mg/dL Thyroid Stimulating Hormone (TSH) 3.02 0.55-4.78 uIU/mL Troponin I High Sensitivity 215 *H </=54 ng/L Test 12/02/24 10:43 12/02/24 07:20 Range/Units Lactic Acid Level 1.7 0.4-2.0 mmol/L Erythrocyte Sedimentation Rate 10 0-20 mm/hr D-Dimer, Quantitative 20.44 H 0.0-0.49 mg/L FEU Magnesium Level 2.0 1.6-2.6 mg/dL Lactate Dehydrogenase 246 120-246 U/L C-Reactive Protein High Sensitivity 3.05 H <1.0 mg/dL B-Type Natriuretic Peptide 283.09 0-100 pg/mL CA 19-9 Antigen 12 0-35 U/mL Microbiology Date/Time Source Procedure Growth Status 12/02/24 10:43 Blood Blood Culture - Preliminary NO GROWTH AFTER 24 HOURS OF INCUBATION. Resulted Assessment/Plan Plan Acute hypoxemic respiratory failure Elevated troponin Pulmonary emboli Dyspnea Patient is seen and examined Troponin is elevated ? Right heart strain CT angiogram report noted Patient currently stable on 2 L of oxygen Recommendations/management plan Obtain ultrasound of the legs to rule out DVT Heparin drip until more stable Interventional Radiology regarding catheter directed thrombolysis Obtain echocardiogram for RV strain Otherwise supportive care Plan discussed with: Other (rn) DAVEY CHING MD Dec 03, 2024 14:37
--- NOTE | 2024-12-03 15:53 | DVHINCON2 ---
ALEJANDRINA CALIXTO [facility] 12/03/24 1553: Date Seen: Dec 03, 2024 Referring Physician MD Jeffrey Reason for Consultation Elevated troponin and pulmonary embolism History of Present Illness This is an 79-year-old male patient who presents to the emergency room with chief complaint of worsening shortness of breath for two days prior to emergency room arrival. During this admission, imaging revealed multiple bilateral pulmonary emboli. CT report does not indicate any RV strain. Initial twelve lead electrocardiogram reveals sinus tachycardia with multiple PACs. Initial troponin level of 372ng/L with down trend thereafter. The patient denies any chest pain. Significant past history includes benign prostatic hyperplasia and urinary incontinence. The patient admits he does not regularly see a primary care physician. He denies any recent travel. Past Medical History Past medical history reviewed. No other significant than mentioned above. Past Surgical History Denies any previous surgeries Family History: Patient reports no known family medical history. Family History Family history reviewed. Social History Denies the use of tobacco, alcohol or illicit drugs. Allergies: Coded Allergies: NO KNOWN ALLERGIES (Unverified , 12/02/24) Home Meds Denies taking any prescribed medications Current Medications Current Medications Medications (Trade) Dose Ordered Sig/Artemio Route PRN Reason Start Time Stop Time Status Last Admin Heparin Sodium/ Dextrose 250 ml @ 15 mls/hr [id number] IV 12/02/24 16:45 12/02/24 23:32 DC 12/02/24 18:14 Heparin Sodium/ Dextrose 250 ml @ 13 mls/hr [id number] IV 12/02/24 23:45 12/03/24 06:52 DC 12/02/24 23:50 Heparin Sodium/ Dextrose 250 ml @ 13 mls/hr [id number] IV 12/03/24 07:00 12/03/24 07:13 Review of Systems Constitutional: No symptom reported Ears, Nose, & Throat: No symptom reported Eyes: No symptom reported Neurological: No symptoms reported Pulmonary/Respiratory: Shortness of breath Cardiovascular: No symptom reported Gastrointestinal: No symptom reported Genitourinary: No symptom reported Musculoskeletal: No symptom reported Skin: No symptom reported Psychiatric: No symptom reported Endocrine: No symptom reported Hematologic/Lymphatic: No symptom reported Vital Signs Vital Signs Date Time Temp Pulse Resp B/P (MAP) Pulse Ox O2 Delivery O2 Flow Rate FiO2 12/03/24 13:00 98.1 81 14 149/86 (107) 97 98.1 12/03/24 08:00 Nasal Cannula* 3 32 Physical Exam General Appearance: Cooperative. Well-developed. Well-nourished. No acute distress. Pulmonary/Respiratory: Diminished bilateral lower lobes Cardiovascular/Chest: Regular rate and rhythm. Peripheral Pulses: 2+ Radial (R). 2+ Radial (L). 2+ Pedal (R). 2+ Pedal (L) Abdominal Exam: Normal bowel sounds. Ankle Exam: Negative ankle edema Lower extremities: Negative lower extremity edema Neuro/Mental Status: A/OX4, coherent. Thoughts/Psych: Normal thought pattern. Appropriate mood and affect. Good judgment and insight. Appearance: No acute distress. Skin Exam: Normal inspection. Normal color. Warm and dry. Labs/Diagnostic Data Labs Test 12/03/24 11:19 12/03/24 05:09 12/02/24 13:23 12/02/24 12:28 Range/Units Prothrombin Time 11.1 9.3-11.8 sec Prothrombin Time INR 1.05 0.9-1.15 Activated Partial Thromboplast Time 65.3 H 24.5-34.5 SEC White Blood Count 8.5 # 4.4-10.8 10^3/uL Red Blood Count 4.49 L 4.5-5.90 10^6/uL Hemoglobin 13.9 13.5-17.5 g/dL Hematocrit 41.1 # 41.0-53.0 % Mean Corpuscular Volume 91.6 80.0-100.0 fL Mean Corpuscular Hemoglobin 31.0 28.0-32.0 pg Mean Corpuscular Hemoglobin Concent 33.9 32.0-36.0 g/dL Red Cell Distribution Width 13.8 11.8-14.3 % Platelet Count 174 140-450 10^3/uL Mean Platelet Volume 9.0 6.9-10.8 fL Neutrophils (%) (Auto) 63.2 37.0-80.0 % Lymphocytes (%) (Auto) 25.8 10.0-50.0 % Monocytes (%) (Auto) 7.2 0.0-12.0 % Eosinophils (%) (Auto) 3.0 0.0-7.0 % Basophils (%) (Auto) 0.8 0.0-2.0 % Neutrophils # (Auto) 5.3 1.6-8.6 10 ^3/uL Lymphocytes # (Auto) 2.2 0.4-5.4 10 ^3/uL Monocytes # (Auto) 0.6 0-1.3 10 ^3/uL Eosinophils # (Auto) 0.3 0-0.8 10 ^3/uL Basophils # (Auto) 0.1 0-0.2 10 ^3/uL Nucleated Red Blood Cells 0.0 % Sodium Level 142 # 136-145 mmol/L Potassium Level 4.4 3.5-5.1 mmol/L Chloride Level 109 H 98-107 mmol/L Carbon Dioxide Level 27 20-31 mmol/L Anion Gap 6 5-15 Blood Urea Nitrogen 23 9-23 mg/dL Creatinine 1.24 0.700-1.30 mg/dL Glomerular Filtration Rate Calc 58 >90 mL/min BUN/Creatinine Ratio 18.5 10.0-20.0 Serum Glucose 108 H 74-106 mg/dL Calcium Level 8.9 8.7-10.4 mg/dL Total Bilirubin 0.6 0.2-1.0 mg/dL Aspartate Amino Transferase (AST) 15 13-40 U/L Alanine Aminotransferase (ALT) 10 7-40 U/L Alkaline Phosphatase 73 46-116 U/L Total Protein 6.2 5.7-8.2 g/dL Albumin 3.8 3.2-4.8 g/dL Triglycerides Level 86 < 150 mg/dL Cholesterol Level 178 < 200 mg/dL LDL Cholesterol 137 H < 100 mg/dL HDL Cholesterol 40 40-59 mg/dL Thyroid Stimulating Hormone (TSH) 3.02 0.55-4.78 uIU/mL Troponin I High Sensitivity 215 *H </=54 ng/L Test 12/02/24 10:43 12/02/24 07:20 Range/Units Lactic Acid Level 1.7 0.4-2.0 mmol/L Erythrocyte Sedimentation Rate 10 0-20 mm/hr D-Dimer, Quantitative 20.44 H 0.0-0.49 mg/L FEU Magnesium Level 2.0 1.6-2.6 mg/dL Lactate Dehydrogenase 246 120-246 U/L C-Reactive Protein High Sensitivity 3.05 H <1.0 mg/dL B-Type Natriuretic Peptide 283.09 0-100 pg/mL CA 19-9 Antigen 12 0-35 U/mL Microbiology Date/Time Source Procedure Growth Status 12/02/24 10:43 Blood Blood Culture - Preliminary NO GROWTH AFTER 24 HOURS OF INCUBATION. Resulted Assessment Acute hypoxic respiratory failure secondary to bilateral pulmonary emboli NSTEMI, likely type II secondary to above Rule out structural heart disease DVT in the right mid and distal superficial femoral vein Hyperlipidemia, newly diagnosed BPH Plan/Recommendation We will continue with the following plan/recommendations (Dr. Rolon): Case discussed with . We will proceed with obtaining a transthoracic echocardiogram to evaluate cardiac function and to check for RV strain. CT scan report shows no evidence of RV dysfunction. Bilateral lower extremity ultrasound positive for DVT in the right mid and distal superficial femoral vein. Patient currently on heparin drip per PE protocol. PESI score: 101 points, class III, intermediate risk (3.2-7.1% thirty day risk mortality in his group). Patient hemodynamically stable at time of assessment, on 3 L nasal cannula, normal blood pressures, and not in sinus tachycardia. Copier Technician to review CT scan to evaluate if patient is a candidate for mechanical thrombectomy. In the meantime, continue with medical management. Thank you for allowing us to care for this patient. Please call with any questions or concerns. Critical care time spent: 43 minutes This medical document was created using an electronic medical record system with voice recognition software and computerized dictation system. Although this document has been carefully reviewed, there might still be some phonetic and typographical errors. Occasional wrong-word or ``sound-alike substitutions may have occurred due to the inherent limitations of voice recognition software. These areas are purely typographical due to imperfections of the software prog leslie and do not reflect any compromise in the patient's medical care. Please read the chart carefully and recognize, using context, where these substitutions have occurred. Plan discussed with: Patient NYHA Physical activity limitations: NA Date of Service: Dec 03, 2024 Billing Provider: ALEJANDRINA CALIXTO Cardiology Common Codes: 45010-CPLOGXD INP/OBS CARE (High) Cardiology Consultation Codes: 34688-[id number] CONSULT <45MIN SHAKA ROLON MD 12/04/24 0838: Family History: Patient reports no known family medical history. Allergies: Coded Allergies: NO KNOWN ALLERGIES (Unverified , 12/02/24) Plan/Recommendation cta shows signifianct thrombus lvef is depressed which is not explainable by PE cont heparin gtt considser thrombectomy Plan discussed with: Patient ALEJANDRINA CALIXTO Dec 03, 2024 15:53 SHAKA ROLON MD Dec 04, 2024 08:38
--- NOTE | 2024-12-03 16:05 | DVH ---
Bilateral lower extremity venous duplex Clinical History: multiple PE's Comparison: None Technique: Duplex Doppler evaluation of the deep venous systems of both lower extremities from the common femora l veins to the popliteal veins including color Doppler and spectral/pulsed waveform analysis was perf ormed. Findings: RIGHT SIDE: The common femoral vein demonstrates appropriate compressibility and waveform variability. There is compressibility/patency of the great saphenous vein at the proximal thigh. The femoral vein demonstrates intraluminal thrombus and noncompressibility mid and distal.. The deep femoral vein demonstrates appropriate compressibility and waveform variability. The popliteal vein demonstrates appropriate compressibility and waveform variability. There is normal compressibility at the tibioperoneal trunk. LEFT SIDE: The common femoral vein demonstrates appropriate compressibility and waveform variability. There is compressibility/patency of the great saphenous vein at the proximal thigh. The femoral vein demonstrates appropriate compressibility and waveform variability. The deep femoral vein demonstrates appropriate compressibility and waveform variability. The popliteal vein demonstrates appropriate compressibility and waveform variability. There is normal compressibility at the tibioperoneal trunk. Impression: No left femoropopliteal venous thrombosis. Positive DVT in the right mid and distal superficial femoral vein. Critical Result: DVT Findings discussed with TIFFANY Mars by [employer] at 12/03/2024 04:02 PM, and acknowledged receipt and und erstanding of the findings.
[2024-12-03 17:37] LABS: INR 1.05 (0.9-1.15); Partial Thromboplastin Time 61.3 SEC (24.5-34.5); Prothrombin Time 11.1 sec (9.3-11.8)
[2024-12-03 17:48] LABS: COVID19 ANTIGEN SOFIA FIA NEGATIVE (NEGATIVE); Rapid Influenza A Negative (Negative); Rapid Influenza B Negative (Negative)
[2024-12-03] MEDS: FUROSEMIDE 20 MG/2 ML VIAL IV ONE (18:49)
[2024-12-03] MEDS: ATORVASTATIN 20 MG TAB PO SCH (22:57)
[2024-12-03] MEDS: METOPROLOL TARTRATE 1MG/1ML-5ML VIAL IV PRN (23:09)
[2024-12-04] VITALS (8 sets, daily range): BP systolic 125–142; BP diastolic 77–98; PULSE 61–102; RESP 16–19; TEMP 97.3–97.6; O2SAT 96–99
[2024-12-04 06:56] LABS: Basophils # (auto) 0.1 10 ^3/uL (0-0.2); Basophils % (auto) 1.1 % (0.0-2.0); Eosinophils # (auto) 0.1 10 ^3/uL (0-0.8); Eosinophils % (auto) 1.5 % (0.0-7.0); Hematocrit 38.1 % (41.0-53.0); Lymphocytes % (auto) 24.1 % (10.0-50.0); Mean Corpuscular Hemoglobin 30.7 pg (28.0-32.0); Mean Corpuscular Hgb Conc. 34.1 g/dL (32.0-36.0); Mean Corpuscular Volume 90.2 fL (80.0-100.0); Monocytes # (auto) 0.6 10 ^3/uL (0-1.3); Monocytes % (auto) 6.8 % (0.0-12.0); Neutrophils # (auto) 5.4 10 ^3/uL (1.6-8.6); Neutrophils % (auto) 66.5 % (37.0-80.0); Platelet Count (auto) 182 10^3/uL (140-450); Red Blood Cells 4.23 10^6/uL (4.5-5.90); Red Cell Distribution Width 13.6 % (11.8-14.3); White Blood Cell 8.2 10^3/uL (4.4-10.8)
[2024-12-04 07:04] LABS: INR 1.08 (0.9-1.15); Partial Thromboplastin Time 63.5 SEC (24.5-34.5); Prothrombin Time 11.4 sec (9.3-11.8)
--- NOTE | 2024-12-04 09:42 | DVHPN2 ---
Consult Progress Note Date Seen: Dec 04, 2024 Subjective Review of Systems: CVS:Normal, RESPIRATORY:Abnormal, NEURO:Normal Other Systems: C/o SOB Objective vital signs Vital Sign Date Time Temp Pulse Resp B/P (MAP) Pulse Ox O2 Delivery O2 Flow Rate FiO2 12/04/24 08:00 102 18 Nasal Cannula* 3 32 12/04/24 05:00 97.5 125/89 (101) 98 97.5 Total Intake and Output 12/03/24 12/03/24 12/04/24 15:00 23:00 07:00 Intake Total 50 ml 420 ml 1450 ml Output Total 700 ml 650 ml Balance 50 ml -280 ml 800 ml medications Current Medications Medications Dose Ordered Sig/Artemio Route Start Time Stop Time Status Last Admin Dose Admin Heparin Sodium/ Dextrose 250 ml @ 12.87 mls/ hr [id number] IV 12/02/24 09:45 UNV Acetaminophen/ Hydrocodone Bitart 1 tab Q4HP PRN PO 12/02/24 09:30 Ondansetron HCl 4 mg Q4HP PRN IV 12/02/24 09:30 Acetaminophen 650 mg Q6HP PRN PO 12/02/24 09:30 Morphine Sulfate 2 mg Q4HPRN PRN IV 12/02/24 09:30 Nitroglycerin 0.4 mg Q5MINP PRN SL 12/02/24 09:30 Morphine Sulfate 2 mg Q30M PRN IV 12/02/24 09:30 Ceftriaxone Sodium 50 ml @ 100 mls/hr DAILY@09 IV 12/02/24 09:30 12/03/24 10:09 100 MLS/HR Azithromycin 250 ml @ 125 mls/hr DAILY IV 12/02/24 09:30 12/03/24 11:14 125 MLS/HR Heparin Sodium/ Dextrose 250 ml @ 13 mls/hr [id number] IV 12/03/24 07:00 12/04/24 02:46 13 MLS/HR Furosemide 20 mg DAILY IV 12/04/24 10:00 Atorvastatin Calcium 20 mg HS PO 12/03/24 22:00 12/03/24 22:57 20 MG Metoprolol Tartrate 5 mg Q6HPRN PRN IV 12/03/24 18:45 12/03/24 23:09 5 MG Examination: LUNGS:Abnormal (O2 via NC. Tachypneic), CVS:Normal, NEURO:Normal laboratory and microbiology Laboratory Tests 12/04/24 06:15 12/03/24 05:09 Test 12/03/24 05:09 Range/Units Serum Glucose 108 H 74-106 mg/dL Problem List/Assessment/Plan Problem List/Assessment/Plan Acute hypoxic respiratory failure secondary to bilateral pulmonary emboli DVT in the right mid and distal superficial femoral vein NSTEMI, likely type II secondary to above Rule out structural heart disease Hyperlipidemia, newly diagnosed Plan/Recommendation (Dr. Barba) Case discussed with Dr. Barba. Continue with a transthoracic echocardiogram to evaluate cardiac function and rule out right ventricular strain. Positive for DVT in the right mid and distal superficial femoral vein. Continue heparin drip per PE protocol. PESI score: 101 points, class III, intermediate risk (3.2-7.1% thirty day risk mortality in his group). Scheduled for a pulmonary thrombectomy with interventional radiology on 12/04/2024. Transition to DOAC therapy when feasible. Monitor closely. Thank you for allowing us to care for this patient. Please call with any questions or concerns. This medical document was created using an electronic medical record system with voice recognition software and computerized dictation system. Although this document has been carefully reviewed, there might still be some phonetic and typographical errors. Occasional wrong-word or ``sound-alike substitutions may have occurred due to the inherent limitations of voice recognition software. These areas are purely typographical due to imperfections of the software programs and do not reflect any compromise in the patient's medical care. Please read the chart carefully and recognize, using context, where these substitutions have occurred. Plan discussed with: Patient, Spouse, Son, Other Date of Service: Dec 04, 2024 Billing Provider: SABRINA RIVERA Cardiology Common Codes: 03481-[id number] HOSP CARE(High SABRINA RIVERA Dec 04, 2024 09:42
--- NOTE | 2024-12-04 09:46 | DVHSR ---
APPROVED REPORT EXAM: Two-dimensional and M-mode echocardiogram with Doppler and color Doppler. Blood Pressure: 149/86 mmHg INDICATION Assess for RV strain RISK FACTORS Height: 5'10", Weight: 175 DIMENSIONS LVDd6.0 (3.8-5.7cm)LA (2D)3.5 (1.9-4.0cm)Aortic Root4.2 (2.0-3.7cm) LVDs5.2 (2.5-4.0cm)LA (MM) (1.9-4.0cm)Aortic Cusp Exc1.7 (1.5-2.0cm) EF (%) 30.0 (55-70%)Rt. Atrium5.2 (1.9-4.0cm)Asc. Aorta cm IVSd1.0 (0.7-1.1cm)RV (D)4.7 (1.8-2.4cm) PWd0.9 (0.7-1.1cm) Mitral Valve MitralMitral Stenosis E wave0.34m/sMV Mean GR.mmHg A wave0.88m/sMV Peak GR.mmHg E/A ratio0.42D MVAcm2 DECEL [id number] 1/2 Timems Aortic Valve Aortic ValveAortic Stenosis V10.63m/Munir Mean GR.5mmHg V21.51m/Munir Peak GR.9mmHg LVOT Diameter2.3 (1.8-2.4cm)Doppler AVA1.73cm2 Pulmonic Valve V20.92m/s Tricuspid Valve TR Velocity3.24m/s [id number] Conclusion lve 25-30% significant LV dysfunction RV enlarged moderately and mild to moderate dysfunction mild to moderate tricuspid regurg moderate PH< PASP prob >48 mmhg
[2024-12-04] MEDS: FUROSEMIDE 20 MG/2 ML VIAL IV SCH (09:55)
--- NOTE | 2024-12-04 09:55 | DVHPN2 ---
Reviewed: Care Plan, H&P, Labs, Medications, Previous Orders, Radiology Changes from previous H/P or p: No Changes Respiratory: Shortness of breath Objective Vitals Vital Signs Date Time Temp Pulse Resp B/P (MAP) Pulse Ox O2 Delivery O2 Flow Rate FiO2 12/04/24 09:00 97.3 61 18 125/77 (93) 99 97.3 12/04/24 08:00 Nasal Cannula* 3 32 Intake/Output Intake and Output 12/04/24 07:00 Intake Total 1920 ml Output Total 1350 ml Balance 570 ml Intake Oral 1620 ml IV Total 300 ml Output Urine Total 1350 ml # Voids 3 # Bowel Movements 2 Medications Current Medications Medications Dose Ordered Sig/Artemio Route Start Time Stop Time Status Last Admin Dose Admin Heparin Sodium/ Dextrose 250 ml @ 12.87 mls/ hr [id number] IV 12/02/24 09:45 UNV Acetaminophen/ Hydrocodone Bitart 1 tab Q4HP PRN PO 12/02/24 09:30 Ondansetron HCl 4 mg Q4HP PRN IV 12/02/24 09:30 Acetaminophen 650 mg Q6HP PRN PO 12/02/24 09:30 Morphine Sulfate 2 mg Q4HPRN PRN IV 12/02/24 09:30 Nitroglycerin 0.4 mg Q5MINP PRN SL 12/02/24 09:30 Morphine Sulfate 2 mg Q30M PRN IV 12/02/24 09:30 Ceftriaxone Sodium 50 ml @ 100 mls/hr DAILY@09 IV 12/02/24 09:30 12/03/24 10:09 100 MLS/HR Azithromycin 250 ml @ 125 mls/hr DAILY IV 12/02/24 09:30 12/03/24 11:14 125 MLS/HR Heparin Sodium/ Dextrose 250 ml @ 13 mls/hr [id number] IV 12/03/24 07:00 12/04/24 02:46 13 MLS/HR Furosemide 20 mg DAILY IV 12/04/24 10:00 Atorvastatin Calcium 20 mg HS PO 12/03/24 22:00 12/03/24 22:57 20 MG Metoprolol Tartrate 5 mg Q6HPRN PRN IV 12/03/24 18:45 12/03/24 23:09 5 MG Laboratory Results Laboratory Tests 12/03/24 05:09 12/04/24 06:15 Coagulation Test 12/03/24 11:19 12/03/24 17:03 12/04/24 06:15 Prothrombin Time 11.1 sec (9.3-11.8) 11.1 sec (9.3-11.8) 11.4 sec (9.3-11.8) Prothrombin Time INR 1.05 (0.9-1.15) 1.05 (0.9-1.15) 1.08 (0.9-1.15) Activated Partial Thromboplast Time 65.3 SEC (24.5-34.5) H 61.3 SEC (24.5-34.5) H 63.5 SEC (24.5-34.5) H Microbiology Microbiology Date/Time Source Procedure Growth Status 12/02/24 10:43 Blood Blood Culture - Preliminary NO GROWTH AFTER 24 HOURS OF INCUBATION. Resulted Labs and/or images reviewed: Labs reviewed by me, Image(s) reviewed by me Assessment/Plan Assessment/Plan Acute hypoxic respiratory failure: Oxygen by nasal cannula D-dimer elevated at 20 Acute bilateral pulmonary emboli: Heparin drip per protocol, consult for pulmonology Dr. Duff DVT right lower extremity, patient on heparin Non ST-elevation MT with troponin 372, consult by supervisor home economics promotions representative Dr. Barba appreciated Sepsis possibly secondary to community-acquired pneumonia: Rocephin azithromycin Noncompliance: Patient has not seen any Dr for the last five years.Seen Dr Aaron five years ago. Justina [phone] bedside Son Ellis [phone] Echo report pending. Plan discussed with: Patient My Orders Orders - JOSE EDUARDO ROGERS MD Procedure Category Date Status Time * Cardiology Consult CONS 12/03/24 Transmitted 13:26 *Consult CONS 12/03/24 Transmitted / 13:47 Date of Service: Dec 04, 2024 Billing Provider: JOSE EDUARDO ROGERS MD Common Visit Codes: [id number] INP/OBS CARE(HIGH) JOSE EDUARDO ROGERS MD Dec 04, 2024 09:55
[2024-12-04 11:59] LABS: Hepatitis B Surface Antigen Negative (Negative); Hepatitis C Antibody Negative (Negative)
--- NOTE | 2024-12-04 20:09 | DVHINCON2 ---
Date of service: Dec 04, [address] Murphy [facility] Reason for Consultation Acute hypoxic respiratory failure, pneumonia, pulmonary embolism and DVT History of Present Illness An 79-year-old man with no significant past medical history who presented to the ED on 12/02/24 with c/o shortness of breath since Wednesday (11/29). Patient reported being unable to sleep or lie down flat due to the shortness of breath, inability to walk as he gets winded pretty quickly. Patient's brought him in in a wheelchair. He does not use oxygen at home; however, upon examination was on 2 L nasal cannula. Patient also has not been to a PCP in the last 5 yea rs. He has no chronic medication and only takes multivitamins. He denied any chest pain, recent sick contacts, recent travel, GI symptoms or other acute complaints. Reports epistaxis in the right naris once per month and has pressure in his head when he does get them - currently denied symptoms. Patient was admitted for further care and pulmonary consultation is requested for evaluation and management of acute hypoxic respiratory failure, pneumonia, pulmonary embolism and DVT. Review of Systems: 14-point review of systems negative unless otherwise noted above. Past Medical History: Denies Past Surgical History: Denies Medications: Reviewed. Allergies: No known drug allergies. Family History: Cancer, Other (Dad with liver cancer and . Sister with lung cancer and .) Social History: Nonsmoker. No alcohol or illicit drug use. Family History: Patient reports no known family medical history. Allergies: Coded Allergies: NO KNOWN ALLERGIES (Unverified , 12/02/24) Current Medications Current Medications Medications (Trade) Dose Ordered Sig/Artemio Route PRN Reason Start Time Stop Time Status Last Admin Furosemide (Lasix Injection) 20 mg DAILY IV 12/04/24 10:00 12/04/24 09:55 Atorvastatin Calcium (Lipitor) 20 mg HS PO 12/03/24 22:00 12/03/24 22:57 Vital Signs Vital Signs Date Time Temp Pulse Resp B/P (MAP) Pulse Ox O2 Delivery O2 Flow Rate FiO2 12/04/24 16:35 97.4 63 16 140/82 (101) 97 97.4 12/04/24 08:00 Nasal Cannula* 3 32 Physical Exam Gen.: Patient lying in bed in no apparent distress. On supplemental oxygen. Head: Normocephalic, atraumatic. Eyes: EOMI/PERRLA. Ears: Normal hearing. Normal anatomy. Neck/trachea: Trachea midline, supple. Nose: Normal external anatomy. Mouth: Moist mucous membranes. Chest: Decreased air entry bilaterally. No wheezing or rhonchi. Cardiovascular: Positive S1, positive S2. Regular rate and rhythm. Abdomen: Positive bowel sounds in all 4 quadrants. Soft, non-tender, non- distended. : Deferred. Rectal: Deferred. Skin: Warm, dry. Intact. Extremities: 2+ radial pulses bilaterally. No lower extremity edema. Neuro: Awake, alert, oriented x3. No gross motor or sensory deficits. Cranial nerves II through XII intact. Gait not assessed. Labs/Diagnostic Data Labs Test 12/04/24 06:15 12/03/24 19:30 12/03/24 16:58 12/03/24 05:09 Range/Units White Blood Count 8.2 4.4-10.8 10^3/uL Red Blood Count 4.23 L 4.5-5.90 10^6/uL Hemoglobin 13.0 L 13.5-17.5 g/dL Hematocrit 38.1 L 41.0-53.0 % Mean Corpuscular Volume 90.2 80.0-100.0 fL Mean Corpuscular Hemoglobin 30.7 28.0-32.0 pg Mean Corpuscular Hemoglobin Concent 34.1 32.0-36.0 g/dL Red Cell Distribution Width 13.6 11.8-14.3 % Platelet Count 182 140-450 10^3/uL Mean Platelet Volume 8.8 6.9-10.8 fL Neutrophils (%) (Auto) 66.5 37.0-80.0 % Lymphocytes (%) (Auto) 24.1 10.0-50.0 % Monocytes (%) (Auto) 6.8 0.0-12.0 % Eosinophils (%) (Auto) 1.5 0.0-7.0 % Basophils (%) (Auto) 1.1 0.0-2.0 % Neutrophils # (Auto) 5.4 1.6-8.6 10 ^3/uL Lymphocytes # (Auto) 2.0 0.4-5.4 10 ^3/uL Monocytes # (Auto) 0.6 0-1.3 10 ^3/uL Eosinophils # (Auto) 0.1 0-0.8 10 ^3/uL Basophils # (Auto) 0.1 0-0.2 10 ^3/uL Nucleated Red Blood Cells 0.0 % Prothrombin Time 11.4 9.3-11.8 sec Prothrombin Time INR 1.08 0.9-1.15 Activated Partial Thromboplast Time 63.5 H 24.5-34.5 SEC Stool Occult Blood Positive Negative Stool Occult Blood Sample #3 Negative Influenza Type A Antigen Negative Negative Influenza Type B Antigen Negative Negative SARS-CoV-2 Antigen (Rapid) Negative NEGATIVE Sodium Level 142 # 136-145 mmol/L Potassium Level 4.4 3.5-5.1 mmol/L Chloride Level 109 H 98-107 mmol/L Carbon Dioxide Level 27 20-31 mmol/L Anion Gap 6 5-15 Blood Urea Nitrogen 23 9-23 mg/dL Creatinine 1.24 0.700-1.30 mg/dL Glomerular Filtration Rate Calc 58 >90 mL/min BUN/Creatinine Ratio 18.5 10.0-20.0 Serum Glucose 108 H 74-106 mg/dL Calcium Level 8.9 8.7-10.4 mg/dL Total Bilirubin 0.6 0.2-1.0 mg/dL Aspartate Amino Transferase (AST) 15 13-40 U/L Alanine Aminotransferase (ALT) 10 7-40 U/L Alkaline Phosphatase 73 46-116 U/L Total Protein 6.2 5.7-8.2 g/dL Albumin 3.8 3.2-4.8 g/dL Triglycerides Level 86 < 150 mg/dL Cholesterol Level 178 < 200 mg/dL LDL Cholesterol 137 H < 100 mg/dL HDL Cholesterol 40 40-59 mg/dL Thyroid Stimulating Hormone (TSH) 3.02 0.55-4.78 uIU/mL Test 12/02/24 13:23 12/02/24 12:28 12/02/24 10:43 12/02/24 07:20 Range/Units Troponin I High Sensitivity 215 *H </=54 ng/L Hepatitis B Surface Antigen Negative Negative Hepatitis C Antibody Negative Negative Lactic Acid Level 1.7 0.4-2.0 mmol/L Erythrocyte Sedimentation Rate 10 0-20 mm/hr D-Dimer, Quantitative 20.44 H 0.0-0.49 mg/L FEU Magnesium Level 2.0 1.6-2.6 mg/dL Lactate Dehydrogenase 246 120-246 U/L C-Reactive Protein High Sensitivity 3.05 H <1.0 mg/dL B-Type Natriuretic Peptide 283.09 0-100 pg/mL Carcinoembryonic Antigen 2.50 <=5.0 ng/mL CA 19-9 Antigen 12 0-35 U/mL Microbiology Date/Time Source Procedure Growth Status 12/02/24 10:43 Blood Blood Culture - Preliminary NO GROWTH AFTER 48 HOURS OF INCUBATION. Resulted Assessment Impression: Acute hypoxic respiratory failure Dependence on supplemental oxygen Pulmonary emboli DVT, right lower extremity Non-ST elevation myocardial infarction Nonadherence Sepsis Pneumonia, likely gram negative Pulmonary hypertension 2/2 pulmonary embolism, RVSP 50 mmHg Congestive heart failure, EF of 25% Plan: Supplemental oxygen 3 LPM NC Titrate to keep O2 sats above 92%. Taper O2 as tolerated. ECHO reviewed; revealed EF of 25-30% and RVSP of 48 mmHg. Cardiology recs appreciated Heparin drip d/t pulmonary embolism and DVT. Plan for thrombectomy Continue antibiotics WBC within normal limits Incentive spirometry Diurese with Lasix as tolerated Monitor renal function. Monitor electrolytes. Supplement as necessary. Monitor ins and outs. DVT prophylaxis. Prognosis: Poor given patient's multiple co-morbidities. Rest of plan per hospitalist and other consultants. Thank you, Dr. Murphy, for allowing me to participate in this patient's care. Further recommendations will depend on the patient's clinical course. Please do not hesitate to contact me if you have any questions or concerns. This medical document was created using an electronic medical record system with Venuu computerized dictation system. Although these documentations are being carefully reviewed, there may still be some phonetic and typographical changes. The errors are purely typographical, due to imperfection on the software [employer], and do not reflect any compromise in the patient's medical care. Plan discussed with: Patient, Spouse, Daughter, Other (TIFFANY Guillen/Dr. Murphy) RADHA GILMORE MD Dec 04, 2024 20:09
[2024-12-05] VITALS (13 sets, daily range): BP systolic 110–146; BP diastolic 71–94; PULSE 59–92; RESP 12–20; TEMP 97.4–97.8; O2SAT 91–99
[2024-12-05 04:41] LABS: Urine Bacteria FEW /hpf (None Seen); Urine Blood 3+ /uL (Negative); Urine Clarity Turbid (Clear); Urine Color Light-Brown (Yellow); Urine Protein, UAD TRACE (Negative); Urine Specific Gravity 1.016 (1.001-1.035); Urine Squamous Epithelial Cell None Seen /hpf (<5); Urine Urobilinogen Normal (Negative); Urine WBC 7 /HPF (0-3); Urine pH 5.5 (5.0-9.0)
[2024-12-05 05:21] LABS: Basophils # (auto) 0 10 ^3/uL (0-0.2); Basophils % (auto) 0.2 % (0.0-2.0); Eosinophils # (auto) 0.3 10 ^3/uL (0-0.8); Eosinophils % (auto) 4.3 % (0.0-7.0); Hematocrit 38.9 % (41.0-53.0); Hemoglobin 12.9 g/dL (13.5-17.5); Lymphocytes # (auto) 2.1 10 ^3/uL (0.4-5.4); Lymphocytes % (auto) 28.5 % (10.0-50.0); Mean Corpuscular Hemoglobin 30.3 pg (28.0-32.0); Mean Corpuscular Hgb Conc. 33.3 g/dL (32.0-36.0); Mean Corpuscular Volume 91.1 fL (80.0-100.0); Monocytes # (auto) 0.6 10 ^3/uL (0-1.3); Monocytes % (auto) 7.6 % (0.0-12.0); Neutrophils # (auto) 4.4 10 ^3/uL (1.6-8.6); Neutrophils % (auto) 59.4 % (37.0-80.0); Nucleated Red Blood Cells % 0.2 %; Platelet Count (auto) 191 10^3/uL (140-450); Red Blood Cells 4.27 10^6/uL (4.5-5.90); Red Cell Distribution Width 13.5 % (11.8-14.3); White Blood Cell 7.3 10^3/uL (4.4-10.8)
[2024-12-05 05:35] LABS: INR 1.12 (0.9-1.15); Partial Thromboplastin Time 66.6 SEC (24.5-34.5); Prothrombin Time 11.7 sec (9.3-11.8)
--- NOTE | 2024-12-05 08:49 | CONS ---
Pharmacy Clinical Information: Heparin per pharmacy Spoke to TIFFANY Guillen regarding heparin dose rate Current dose: 1300 units/hr Current aPTT: 66.6 on 12/05/24 @ 0506 Bolus: No Decrease or Increase (new dose): No change in dose rate Next aPTT: 12/06/24 @ 0500 TIFFANY Guillen read back dose rate: 1300 units/hr Comments: to clarify and/or to report heparin errors (e.g., value entered wrong on the IV pump) RENU CUELLO PHARMACIST Dec 05, 2024 08:49
[2024-12-05] MEDS: IODIXANOL 320MG/ML 100ML BTL IV ONE (09:33)
[2024-12-05] MEDS: LIDOCAINE 2%HCL (LOCAL ANESTH.) INJ 20ML MDV ONE (09:36)
[2024-12-05] MEDS: MIDAZOLAM HCL 2MG/2ML 2ml VIAL (1mg/ml) ONE (09:36)
[2024-12-05] MEDS: fentaNYL CITRATE 100 MCG/2 ML VL ONE (09:36)
--- NOTE | 2024-12-05 10:08 | DVHPN2 ---
Reviewed: Care Plan, H&P, Labs, Medications, Previous Orders, Radiology Changes from previous H/P or p: No Changes Respiratory: Shortness of breath Objective Vitals Vital Signs Date Time Temp Pulse Resp B/P (MAP) Pulse Ox O2 Delivery O2 Flow Rate FiO2 12/05/24 08:17 97.6 68 20 129/90 (103) 98 97.6 12/05/24 08:00 Nasal Cannula* 3 32 Intake/Output Intake and Output 12/05/24 07:00 Intake Total 1235 ml Output Total 1550 ml Balance -315 ml Intake Oral 675 ml IV Total 560 ml Output Urine Total 1550 ml # Bowel Movements 1 Medications Current Medications Medications Dose Ordered Sig/Artemio Route Start Time Stop Time Status Last Admin Dose Admin Heparin Sodium/ Dextrose 250 ml @ 12.87 mls/ hr [id number] IV 12/02/24 09:45 UNV Acetaminophen/ Hydrocodone Bitart 1 tab Q4HP PRN PO 12/02/24 09:30 Ondansetron HCl 4 mg Q4HP PRN IV 12/02/24 09:30 Acetaminophen 650 mg Q6HP PRN PO 12/02/24 09:30 Morphine Sulfate 2 mg Q4HPRN PRN IV 12/02/24 09:30 Nitroglycerin 0.4 mg Q5MINP PRN SL 12/02/24 09:30 Morphine Sulfate 2 mg Q30M PRN IV 12/02/24 09:30 Ceftriaxone Sodium 50 ml @ 100 mls/hr DAILY@09 IV 12/02/24 09:30 12/04/24 09:55 100 MLS/HR Azithromycin 250 ml @ 125 mls/hr DAILY IV 12/02/24 09:30 12/04/24 12:07 125 MLS/HR Heparin Sodium/ Dextrose 250 ml @ 13 mls/hr [id number] IV 12/03/24 07:00 12/04/24 21:35 13 MLS/HR Furosemide 20 mg DAILY IV 12/04/24 10:00 12/04/24 09:55 20 MG Atorvastatin Calcium 20 mg HS PO 12/03/24 22:00 12/04/24 21:33 20 MG Metoprolol Tartrate 5 mg Q6HPRN PRN IV 12/03/24 18:45 12/03/24 23:09 5 MG Laboratory Results Laboratory Tests 12/03/24 05:09 6/3/25 05:06 Coagulation Test 12/05/24 05:06 Prothrombin Time 11.7 sec (9.3-11.8) Prothrombin Time INR 1.12 (0.9-1.15) Activated Partial Thromboplast Time 66.6 SEC (24.5-34.5) H Urinalysis Test 12/05/24 03:45 Urine Color Light-brown (Yellow) Urine Clarity Turbid (Clear) H Urine pH 5.5 (5.0-9.0) Urine Specific [place] 1.016 (1.001-1.035) Urine Protein Trace (Negative) H Urine Ketones Negative (Negative) Urine Blood 3+ /uL (Negative) H Urine Nitrite Negative (Negative) Urine Bilirubin Negative (Negative) Urine Urobilinogen Normal mg/dL (Negative) Urine Leukocyte Esterase Negative /uL (Negative) Urine RBC 2277 /hpf (0 - 3) Urine Microscopic WBC 7 /HPF (0-3) H Urine Squamous Epithelial Cells None seen /hpf (<5) Urine Bacteria Few /hpf (None Seen) H Urine Glucose Normal mg/dL (Normal) Microbiology Microbiology Date/Time Source Procedure Growth Status 12/02/24 10:43 Blood Blood Culture - Preliminary NO GROWTH AFTER 48 HOURS OF INCUBATION. Resulted Labs and/or images reviewed: Labs reviewed by me, Image(s) reviewed by me Assessment/Plan Assessment/Plan Acute hypoxic respiratory failure: Oxygen by nasal cannula D-dimer elevated at 20 Acute bilateral pulmonary emboli: Heparin drip per protocol, consult for pulmonology Dr. Hightower, patient getting pulmonary artery thrombectomy by interventional radiologist today DVT right lower extremity, patient on heparin Non ST-elevation [place] with troponin 372, consult by can sterilizer drone software development engineer Dr. Barba appreciated Sepsis possibly secondary to community-acquired pneumonia: Rocephin azithromycin Noncompliance: Patient has not seen any Dr for the last five years.Seen Dr Aaron five years ago. Justina [phone] bedside Son Ellis [phone] Echo report pending. Plan discussed with: Patient My Orders Orders - JOSE EDUARDO ROGERS MD Procedure Category Date Status Time Perc.Arterial XY 12/05/24 Logged Thrombectomy 09:48 Inferior Vena Cava XY 12/05/24 Logged Filter 09:48 Date of Service: Dec 05, 2024 Billing Provider: JOSE EDUARDO ROGERS MD Common Visit Codes: [id number] INP/OBS CARE(HIGH) JOSE EDUARDO ROGERS MD Dec 05, 2024 10:08
[2024-12-05] MEDS: ATROPINE SULF 1 MG/10ml SYR ONE (10:26)
--- NOTE | 2024-12-05 12:24 | DVH ---
XY PERC.ARTERIAL THROMBECTOMY, HISTORY: 80 year old male with PE/DVT, elevated troponins and RV dysfunction here for PE thrombectomy , and IVC filter placement PROCEDURE: Informed consent was obtained. The patient was placed on the fluoroscopic table in supine position. The right groin was prepped with chlorhexidine which was allowed to dry and draped in the u sual sterile fashion. Time out was performed. Following administration of 1% local lidocaine, the com mon femoral vein was accessed with a micropuncture set under ultrasound guidance, and an image docume nting patency sent to PACS. A 6 Fr. Sheath was placed into the left iliac vein. A cavogram was perfor med and the level of the renal veins were identified. Next, over the wire an angled pigtail catheter was placed into the heart. Multiple attempts were made to access the RVOT however was unsuccessful. C ontrast injection in the RV was made. The thrombectomy portion of the procedure was aborted. The cath eter was exchanged for a 9.6 Japanese introducer sheath, and a Bard G2 Doris IVC filter was deployed i n an infrarenal location. The introducer sheath was removed and the venotomy closed with manual compr ession. Post-deployment image was obtained. No immediate complication was identified. DAP 4228 FLUOROSCOPY TIME: 19.2 minutes. CONTRAST USED: 50 mL . SEDATION: Dr. Negro Yao was personally responsible for the administration of moderate sedation during the procedure performed, including the use of an independent trained observer who had no other duties during the procedure. The drugs utilized were IV fentanyl and versed (see nursing log for details). The total time of supervision by the attending physician was approximately 90 minutes. FINDINGS: Heart RV venogram shows the RVOT and the pulmonary artery. However the pigtail catheter was unable to access into the pulmonary artery. There is a patent single IVC visualized without intralum inal filling defect. No renal venous anomaly is noted. Post-procedure image demonstrates good positio suyapa of the IVC filter in an infrarenal position. IMPRESSION: Heart RV venogram shows the RVOT and the pulmonary artery. However the pigtail catheter was unable to access into the pulmonary artery. In combination with sensitivity of the heart rate with PVC and dony ef bradycardia to 40s, the pulmonary embolectomy was aborted. Infra-renal IVC filter placement was performed. PLAN: Resume anticoagulation. Right leg straight for 2 hours. Transition to oral anticoagulation per primary.
--- NOTE | 2024-12-05 14:29 | DVHPN2 ---
Consult Progress Note Date Seen: Dec 05, 2024 Subjective Review of Systems: CVS:Normal, RESPIRATORY:Normal, NEURO:Normal Objective vital signs Vital Sign Date Time Temp Pulse Resp B/P (MAP) Pulse Ox O2 Delivery O2 Flow Rate FiO2 12/05/24 12:28 78 12 126/88 (101) 98 12/05/24 08:17 97.6 97.6 12/05/24 08:00 Nasal Cannula* 3 32 Total Intake and Output 12/04/24 12/04/24 12/05/24 15:00 23:00 07:00 Intake Total 743 ml 492 ml Output Total 1000 ml 550 ml Balance -257 ml -58 ml medications Current Medications Medications Dose Ordered Sig/Artemio Route Start Time Stop Time Status Last Admin Dose Admin Heparin Sodium/ Dextrose 250 ml @ 12.87 mls/ hr [id number] IV 12/02/24 09:45 UNV Acetaminophen/ Hydrocodone Bitart 1 tab Q4HP PRN PO 12/02/24 09:30 Ondansetron HCl 4 mg Q4HP PRN IV 12/02/24 09:30 Acetaminophen 650 mg Q6HP PRN PO 12/02/24 09:30 Morphine Sulfate 2 mg Q4HPRN PRN IV 12/02/24 09:30 Nitroglycerin 0.4 mg Q5MINP PRN SL 12/02/24 09:30 Morphine Sulfate 2 mg Q30M PRN IV 12/02/24 09:30 Ceftriaxone Sodium 50 ml @ 100 mls/hr DAILY@09 IV 12/02/24 09:30 12/04/24 09:55 100 MLS/HR Azithromycin 250 ml @ 125 mls/hr DAILY IV 12/02/24 09:30 12/04/24 12:07 125 MLS/HR Heparin Sodium/ Dextrose 250 ml @ 13 mls/hr [id number] IV 12/03/24 07:00 12/04/24 21:35 13 MLS/HR Furosemide 20 mg DAILY IV 12/04/24 10:00 12/04/24 09:55 20 MG Atorvastatin Calcium 20 mg HS PO 12/03/24 22:00 12/04/24 21:33 20 MG Metoprolol Tartrate 5 mg Q6HPRN PRN IV 12/03/24 18:45 12/03/24 23:09 5 MG Examination: LUNGS:Normal, CVS:Normal, NEURO:Normal laboratory and microbiology Laboratory Tests 12/05/24 05:06 12/03/24 05:09 Test 12/03/24 05:09 Range/Units Serum Glucose 108 H 74-106 mg/dL Problem List/Assessment/Plan Problem List/Assessment/Plan Acute hypoxic respiratory failure secondary to bilateral pulmonary emboli with RV strain DVT in the right mid and distal superficial femoral vein status post NSTEMI, likely type II secondary to above Chronic compensated HFrEF, newly diagnosed Pulmonary arterial hypertension, likely Group IV Hyperlipidemia, newly diagnosed Plan/Recommendation (Dr. Dailey) Transthoracic echocardiogram revealed LVEF 25-30% RVSP>48 mmHg RV moderately enlarged. The patient underwent an unsuccessful pulmonary thrombectomy with IVC filter placement (see dictated report per IR). Continue heparin drip per PE protocol and transition to Eliquis therapy HS including 10mg BID for 7 days followed by 5mg BID for the remaining of the treatment, monitor H&H closely. Initiate full GDMT for CHF and up-titrate as tolerated. Continue lipid-lowering agent. Single-antiplatelet therapy held given therapeutic Eliquis, +FOBT (stable H&H), and advanced age. The patient will need an eventual cardiac catheterization and coronary angiogram given newly diagnosed cardiomyopathy. Consider IVC filter removal within 6 months of implantation by 06/2025. Scheduled for a follow-up with Dr. Dailey on 12/21/2024 at 0930. Kindly call if in need to re-consult. Thank you for allowing us to care for this patient. This medical document was created using an electronic medical record system with voice recognition software and computerized dictation system. Although this document has been carefully reviewed, there might still be some phonetic and typographical errors. Occasional wrong-word or ``sound-alike substitutions may have occurred due to the inherent limitations of voice recognition software. These areas are purely typographical due to imperfections of the software programs and do not reflect any compromise in the patient's medical care. Please read the chart carefully and recognize, using context, where these substitutions have occurred. Plan discussed with: Patient, Other Date of Service: Dec 05, 2024 Billing Provider: SABRINA RIVERA Cardiology Common Codes: [id number] HOSP CARE(High SABRINA RIVERA Dec 05, 2024 14:29
--- NOTE | 2024-12-05 14:46 | DI ---
XY PERC.ARTERIAL THROMBECTOMY, HISTORY: 80 year old male with PE/DVT, elevated troponins and RV dysfunction here for PE thrombectomy, and IVC filter placement PROCEDURE: Informed consent was obtained. The patient was placed on the fluoroscopic table in supine position. The right groin was prepped with chlorhexidine which was allowed to dry and draped in the usual sterile fashion. Time out was performed. Following administration of 1% local lidocaine, the common femoral vein was accessed with a micropuncture set under ultrasound guidance, and an image documenting patency sent to PACS. A 6 Fr. Sheath was placed into the left iliac vein. A cavogram was performed and the level of the renal veins were identified. Next, over the wire an angled pigtail catheter was placed into the heart. Multiple attempts were made to access the RVOT however was unsuccessful. Contrast injection in the RV was made. The thrombectomy portion of the procedure was aborted. The catheter was exchanged for a 9.6 Romanian introducer sheath, and a Bard G2 Holt IVC filter was deployed in an infrarenal location. The introducer sheath was removed and the venotomy closed with manual compression. Post-deployment image was obtained. No immediate complication was identified. DAP 4228 FLUOROSCOPY TIME: 19.2 minutes. CONTRAST USED: 50 mL . SEDATION: Dr. Negro Yao was personally responsible for the administration of moderate sedation during the procedure performed, including the use of an independent trained observer who had no other duties during the procedure. The drugs utilized were IV fentanyl and versed (see nursing log for details). The total time of supervision by the attending physician was approximately 90 minutes. FINDINGS: Heart RV venogram shows the RVOT and the pulmonary artery. However the pigtail catheter was unable to access into the pulmonary artery. There is a patent single IVC visualized without intraluminal filling defect. No renal venous anomaly is noted. Post-procedure image demonstrates good positioning of the IVC filter in an infrarenal position. IMPRESSION: Heart RV venogram shows the RVOT and the pulmonary artery. However the pigtail catheter was unable to access into the pulmonary artery. In combination with sensitivity of the heart rate with PVC and brief bradycardia to 40s, the pulmonary embolectomy was aborted. Infra-renal IVC filter placement was performed. PLAN: Resume anticoagulation. Right leg straight for 2 hours. Transition to oral anticoagulation per primary. NICAL LEAD MTDD
--- NOTE | 2024-12-05 21:35 | DVHPN2 ---
Progress Note - Dictate Date Seen: Dec 05, 2024 Medical Necessity Reason Pt with a Central, PICC or Fol: No Subjective [facility] Patient seen and examined at bedside. Remains on supplemental oxygen Overnight events reviewed. vital signs Vital Sign Date Time Temp Pulse Resp B/P (MAP) Pulse Ox O2 Delivery O2 Flow Rate FiO2 12/05/24 20:00 Nasal Cannula* 2 28 12/05/24 17:00 97.7 71 18 136/94 (108) 96 97.7 Total Intake and Output 12/04/24 12/04/24 12/05/24 15:00 23:00 07:00 Intake Total 743 ml 492 ml Output Total 1000 ml 550 ml Balance -257 ml -58 ml medications Current Medications Medications Dose Ordered Sig/Artemio Route Start Time Stop Time Status Last Admin Dose Admin Heparin Sodium/ Dextrose 250 ml @ 12.87 mls/ hr [id number] IV 12/02/24 09:45 UNV Acetaminophen/ Hydrocodone Bitart 1 tab Q4HP PRN PO 12/02/24 09:30 Ondansetron HCl 4 mg Q4HP PRN IV 12/02/24 09:30 Acetaminophen 650 mg Q6HP PRN PO 12/02/24 09:30 Nitroglycerin 0.4 mg Q5MINP PRN SL 12/02/24 09:30 Morphine Sulfate 2 mg Q30M PRN IV 12/02/24 09:30 Ceftriaxone Sodium 50 ml @ 100 mls/hr DAILY@09 IV 12/02/24 09:30 12/04/24 09:55 100 MLS/HR Azithromycin 250 ml @ 125 mls/hr DAILY IV 12/02/24 09:30 12/04/24 12:07 125 MLS/HR Heparin Sodium/ Dextrose 250 ml @ 13 mls/hr [id number] IV 12/03/24 07:00 12/05/24 22:00 12/05/24 18:44 13 MLS/HR Atorvastatin Calcium 20 mg HS PO 12/03/24 22:00 12/04/24 21:33 20 MG Sacubitril/ Valsartan 0.5 tab BID PO 12/05/24 22:00 Carvedilol 3.125 mg Q12HR PO 12/05/24 22:00 Spironolactone 12.5 mg DAILY PO 12/06/24 10:00 Empaglifozin 10 mg DAILY PO 12/06/24 10:00 Furosemide 20 mg DAILY PO 12/06/24 10:00 Apixaban 10 mg BID PO 12/05/24 22:00 12/12/24 21:59 Apixaban 5 mg BID PO 12/13/24 22:00 objective Gen.: Patient lying in bed in no apparent distress. On supplemental oxygen. Head: Normocephalic, atraumatic. Eyes: EOMI/PERRLA. Ears: Normal hearing. Normal anatomy. Neck/trachea: Trachea midline, supple. Nose: Normal external anatomy. Mouth: Moist mucous membranes. Chest: Decreased air entry bilaterally. No wheezing or rhonchi. Cardiovascular: Positive S1, positive S2. Regular rate and rhythm. Abdomen: Positive bowel sounds in all 4 quadrants. Soft, non-tender, non- distended. : Deferred. Rectal: Deferred. Skin: Warm, dry. Intact. Extremities: 2+ radial pulses bilaterally. No lower extremity edema. Neuro: Awake, alert, oriented x3. No gross motor or sensory deficits. Cranial nerves II through XII intact. Gait not assessed. laboratory and microbiology Laboratory Tests 12/05/24 05:06 12/03/24 05:09 Test 12/03/24 05:09 Range/Units Serum Glucose 108 H 74-106 mg/dL Assessment/Plan Impression: Acute hypoxic respiratory failure Dependence on supplemental oxygen Pulmonary emboli DVT, right lower extremity Non-ST elevation myocardial infarction Nonadherence Sepsis Pneumonia, likely gram negative Pulmonary hypertension 2/2 pulmonary embolism, RVSP 50 mmHg Congestive heart failure, EF of 25% Events: Remains on supplemental oxygen, 3 LPM NC Taper O2 as tolerated Continue heparin drip Plan for thrombectomy by IR. Labs and imaging reviewed. Rest of plan as noted below. Plan: Supplemental oxygen Titrate to keep O2 sats above 92%. ECHO reviewed; revealed EF of 25-30% and RVSP of 48 mmHg. Cardiology recs appreciated Heparin drip d/t pulmonary embolism and DVT. Plan for thrombectomy Continue antibiotics WBC within normal limits Incentive spirometry Diurese to euvolemia Monitor renal function. Monitor electrolytes. Supplement as necessary. Monitor ins and outs. DVT prophylaxis. Prognosis: Poor given patient's multiple co-morbidities. Rest of plan per hospitalist and other consultants. Thank you, Dr. Murphy, for allowing me to participate in this patient's care. Further recommendations will depend on the patient's clinical course. Please do not hesitate to contact me if you have any questions or concerns. This medical document was created using an electronic medical record system with [employer] dictation system. Although these documentations are being carefully reviewed, there may still be some phonetic and typographical changes. The errors are purely typographical, due to imperfection on the software program, and do not reflect any compromise in the patient's medical care. Plan discussed with: Patient, Other (TIFFANY Guillen) RADHA GILMORE MD Dec 05, 2024 21:35
[2024-12-05] MEDS: APIXABAN 5 MG TAB PO SCH (22:15)
[2024-12-05] MEDS: SACUBITRIL-VALSARTAN 24mg/26mg TAB PO SCH (22:15)
[2024-12-05] MEDS: CARVEDILOL 3.125 MG TAB PO SCH (22:16)
[2024-12-06] VITALS (8 sets, daily range): BP systolic 104–124; BP diastolic 70–86; PULSE 68–91; RESP 14–18; TEMP 97.4–98.7; O2SAT 97–98
--- NOTE | 2024-12-06 08:28 | DVHPN2 ---
Reviewed: Care Plan, H&P, Labs, Medications, Previous Orders, Radiology Changes from previous H/P or p: No Changes Respiratory: Shortness of breath Objective Vitals Vital Signs Date Time Temp Pulse Resp B/P (MAP) Pulse Ox O2 Delivery O2 Flow Rate FiO2 12/06/24 05:00 97.6 79 18 107/83 (91) 98 97.6 12/05/24 20:00 Nasal Cannula* 2 28 Intake/Output Intake and Output 12/06/24 07:00 Intake Total 1006 ml Output Total 1000 ml Balance 6 ml Intake Oral 980 ml IV Total 26 ml Output Urine Total 1000 ml # Voids 1 # Bowel Movements 1 Medications Current Medications Medications Dose Ordered Sig/Artemio Route Start Time Stop Time Status Last Admin Dose Admin Heparin Sodium/ Dextrose 250 ml @ 12.87 mls/ hr [id number] IV 12/02/24 09:45 UNV Acetaminophen/ Hydrocodone Bitart 1 tab Q4HP PRN PO 12/02/24 09:30 Ondansetron HCl 4 mg Q4HP PRN IV 12/02/24 09:30 Acetaminophen 650 mg Q6HP PRN PO 12/02/24 09:30 Nitroglycerin 0.4 mg Q5MINP PRN SL 12/02/24 09:30 Morphine Sulfate 2 mg Q30M PRN IV 12/02/24 09:30 Ceftriaxone Sodium 50 ml @ 100 mls/hr DAILY@09 IV 12/02/24 09:30 12/04/24 09:55 100 MLS/HR Azithromycin 250 ml @ 125 mls/hr DAILY IV 12/02/24 09:30 12/04/24 12:07 125 MLS/HR Atorvastatin Calcium 20 mg HS PO 12/03/24 22:00 12/05/24 22:15 20 MG Sacubitril/ Valsartan 0.5 tab BID PO 12/05/24 22:00 12/05/24 22:15 0.5 TAB Carvedilol 3.125 mg Q12HR PO 12/05/24 22:00 12/05/24 22:16 3.125 MG Spironolactone 12.5 mg DAILY PO 12/06/24 10:00 Empaglifozin 10 mg DAILY PO 12/06/24 10:00 Furosemide 20 mg DAILY PO 12/06/24 10:00 Apixaban 10 mg BID PO 12/05/24 22:00 12/12/24 21:59 12/05/24 22:15 10 MG Apixaban 5 mg BID PO 12/13/24 22:00 Laboratory Results Laboratory Tests 12/03/24 05:09 12/05/24 05:06 Urinalysis Test 12/05/24 03:45 Urine Color Light-brown (Yellow) Urine Clarity Turbid (Clear) H Urine pH 5.5 (5.0-9.0) Urine Specific [place] 1.016 (1.001-1.035) Urine Protein Trace (Negative) H Urine Ketones Negative (Negative) Urine Blood 3+ /uL (Negative) H Urine Nitrite Negative (Negative) Urine Bilirubin Negative (Negative) Urine Urobilinogen Normal mg/dL (Negative) Urine Leukocyte Esterase Negative /uL (Negative) Urine RBC 2277 /hpf (0 - 3) Urine Microscopic WBC 7 /HPF (0-3) H Urine Squamous Epithelial Cells None seen /hpf (<5) Urine Bacteria Few /hpf (None Seen) H Urine Glucose Normal mg/dL (Normal) Microbiology Microbiology Date/Time Source Procedure Growth Status 12/02/24 10:43 Blood Blood Culture - Preliminary NO GROWTH AFTER 72 HOURS OF INCUBATION. Resulted Labs and/or images reviewed: Labs reviewed by me, Image(s) reviewed by me Assessment/Plan Assessment/Plan Acute hypoxic respiratory failure: Oxygen by nasal cannula D-dimer elevated at 20 Acute bilateral pulmonary emboli: Heparin discontinued and started on Eliquis per protocol INTERVENTIONAL RADIOLOGY DR. ROSEN NOTES: "Heart RV venogram shows the RVOT and the pulmonary artery. However the pigtail catheter was unable to access into the pulmonary artery. In combination with sensitivity of the heart rate with PVC and brief bradycardia to 40s, the pulmonary embolectomy was aborted"nfra-renal IVC filter placement was performed." Status post IVC filter placement DVT right lower extremity Non ST-elevation [place] with troponin 372, consult by staff mechanical engineer merchandise presentation manager Dr. Barba appreciated Sepsis possibly secondary to community-acquired pneumonia: Rocephin azithromycin Noncompliance: Patient has not seen any Dr for the last five years.Seen Dr Aaron five years ago. Justina [phone] bedside Son Ellis [phone] Echo report pending. Plan discussed with: Patient My Orders Orders - JOSE EDUARDO ROGERS MD Procedure Category Date Status Time Inferior Vena Cava XY 12/05/24 Resulted Filter 09:48 Date of Service: Dec 06, 2024 Billing Provider: JOSE EDUARDO ROGERS MD Common Visit Codes: [id number] INP/OBS CARE(HIGH) JOSE EDUARDO ROGERS MD Dec 06, 2024 08:28
[2024-12-06] MEDS: EMPAGLIFLOZIN 10 MG TAB PO SCH (09:39)
[2024-12-06] MEDS: SPIRONOLACTONE 25 MG TAB PO SCH (09:41)
[2024-12-06] MEDS: FUROSEMIDE 20 MG TAB PO SCH (09:41)
--- NOTE | 2024-12-06 14:22 | DVH ---
CT CHST AB PEL WO CON-NO IV/ORAL INDICATION: DVT and PE, rule out any malignancy EXAM DATE: 12/06/2024 01:20 PM COMPARISON: None RADIATION DOSE: CTDIvol: 7.57 mGy, DLP: 540.27 mGy*cm PROCEDURE: Helical CT images were obtained of the chest, abdomen, and pelvis without intravenous cont rast. Sagittal and coronal reconstructions are provided. ORAL CONTRAST: None. ADDITIONAL IMAGES / REFORMATS: None All CT scans at this medical facility are performed using dose modulation techniques as appropriate t o a performed exam including the following: Automated exposure control was utilized; adjustment of th e MA and/or KV according to patient size; and use of iterative reconstruction technique. FINDINGS: CHEST: BONES: Scattered degenerative changes are noted in the visualized osseous structures. CHEST WALL: 2.6 cm cyst along the left posterior upper chest wall. SOFT TISSUES:Normal. MEDIASTINUM: Normal. HEART: Enlarged VESSELS: Normal. LYMPH NODES: Normal. PLEURA: Normal. AIRWAYS: Normal. LUNG: Normal. ABDOMEN AND PELVIS: BONES: Scattered degenerative changes are noted in the visualized osseous structures. LIVER: 1.0 cm cyst at the hepatic dome. GALLBLADDER AND BILIARY TREE: Gallstones in a contracted gallbladder. No intra- or extrahepatic bilia ry ductal dilation. PANCREAS: Normal. SPLEEN: Normal. BOWEL: Normal. Normal appendix. ADRENALS: Normal. KIDNEYS AND URETER: Mild left hydronephrosis. BLADDER: Normal. REPRODUCTIVE ORGANS: Enlarged prostate with prominent distal ureters. Small bladder diverticulum. LYMPH NODES:No lymphadenopathy. PERITONEUM: No ascites or free air. No other fluid collection. VESSELS: Atherosclerosis. An IVC filter is seen. RETROPERITONEUM: Normal. ABDOMINAL WALL: Normal. IMPRESSION: No acute intrathoracic or intraabdominal abnormality. Enlarged prostate with prominent distal ureters. A bladder US can be considered for further evaluatio n. Mild left hydronephrosis. No stone seen. Cholelithiasis.
--- NOTE | 2024-12-06 20:52 | DVHPN2 ---
Progress Note - Dictate Date Seen: Dec 06, 2024 Medical Necessity Reason Pt with a Central, PICC or Fol: No Subjective [facility] Patient seen and examined at bedside. Remains on supplemental oxygen Overnight events reviewed. vital signs Vital Sign Date Time Temp Pulse Resp B/P (MAP) Pulse Ox O2 Delivery O2 Flow Rate FiO2 12/06/24 20:48 97.8 77 18 104/80 (88) 97 97.8 12/06/24 08:00 Nasal Cannula* 2 28 Total Intake and Output 12/05/24 12/05/24 12/06/24 15:00 23:00 07:00 Intake Total 26 ml 580 ml 400 ml Output Total 800 ml 200 ml Balance 26 ml -220 ml 200 ml medications Current Medications Medications Dose Ordered Sig/Artemio Route Start Time Stop Time Status Last Admin Dose Admin Heparin Sodium/ Dextrose 250 ml @ 12.87 mls/ hr [id number] IV 12/02/24 09:45 UNV Acetaminophen/ Hydrocodone Bitart 1 tab Q4HP PRN PO 12/02/24 09:30 Ondansetron HCl 4 mg Q4HP PRN IV 12/02/24 09:30 Acetaminophen 650 mg Q6HP PRN PO 12/02/24 09:30 Nitroglycerin 0.4 mg Q5MINP PRN SL 12/02/24 09:30 Morphine Sulfate 2 mg Q30M PRN IV 12/02/24 09:30 Ceftriaxone Sodium 50 ml @ 100 mls/hr DAILY@09 IV 12/02/24 09:30 12/06/24 09:39 100 MLS/HR Azithromycin 250 ml @ 125 mls/hr DAILY IV 12/02/24 09:30 12/06/24 11:23 125 MLS/HR Atorvastatin Calcium 20 mg HS PO 12/03/24 22:00 12/05/24 22:15 20 MG Sacubitril/ Valsartan 0.5 tab BID PO 12/05/24 22:00 12/06/24 09:40 0.5 TAB Carvedilol 3.125 mg Q12HR PO 12/05/24 22:00 12/06/24 09:42 3.125 MG Spironolactone 12.5 mg DAILY PO 12/06/24 10:00 12/06/24 09:41 12.5 MG Empaglifozin 10 mg DAILY PO 12/06/24 10:00 12/06/24 09:39 10 MG Furosemide 20 mg DAILY PO 12/06/24 10:00 12/06/24 09:41 20 MG Apixaban 10 mg BID PO 12/05/24 22:00 12/12/24 21:59 12/06/24 09:40 10 MG Apixaban 5 mg BID PO 12/13/24 22:00 objective Gen.: Patient lying in bed in no apparent distress. On supplemental oxygen. Head: Normocephalic, atraumatic. Eyes: EOMI/PERRLA. Ears: Normal hearing. Normal anatomy. Neck/trachea: Trachea midline, supple. Nose: Normal external anatomy. Mouth: Moist mucous membranes. Chest: Decreased air entry bilaterally. No wheezing or rhonchi. Cardiovascular: Positive S1, positive S2. Regular rate and rhythm. Abdomen: Positive bowel sounds in all 4 quadrants. Soft, non-tender, non- distended. : Deferred. Rectal: Deferred. Skin: Warm, dry. Intact. Extremities: 2+ radial pulses bilaterally. No lower extremity edema. Neuro: Awake, alert, oriented x3. No gross motor or sensory deficits. Cranial nerves II through XII intact. Gait not assessed. laboratory and microbiology Laboratory Tests 12/05/24 05:06 12/03/24 05:09 Test 12/03/24 05:09 Range/Units Serum Glucose 108 H 74-106 mg/dL Assessment/Plan Impression: Acute hypoxic respiratory failure Dependence on supplemental oxygen Pulmonary emboli DVT, right lower extremity Non-ST elevation myocardial infarction Nonadherence Sepsis Pneumonia, likely gram negative Pulmonary hypertension 2/2 pulmonary embolism, RVSP 50 mmHg Congestive heart failure, EF of 25% Events: Remains on supplemental oxygen, 2 LPM NC Taper O2 as tolerated S/p IVC filter. IR recommendations appreciated. Continue anticoagulation Continue antibiotics Incentive spirometry Patient is stable for discharge from the pulmonary standpoint. Follow up in 2 to 3 weeks as outpatient in Pulmonary office. Labs and imaging reviewed. Rest of plan as noted below. Plan: Supplemental oxygen Titrate to keep O2 sats above 92%. ECHO reviewed; revealed EF of 25-30% and RVSP of 48 mmHg. Cardiology recs appreciated S/p IVC filter IR recommendations appreciated. Continue anticoagulation Eliquis PO BID Continue antibiotics WBC within normal limits Incentive spirometry Diurese to euvolemia Monitor renal function. Monitor electrolytes. Supplement as necessary. Monitor ins and outs. DVT prophylaxis. Prognosis: Guarded given patient's multiple co-morbidities. Rest of plan per hospitalist and other consultants. Thank you, Dr. Murphy, for allowing me to participate in this patient's care. Further recommendations will depend on the patient's clinical course. Please do not hesitate to contact me if you have any questions or concerns. This medical document was created using an electronic medical record system with [employer] dictation system. Although these documentations are being carefully reviewed, there may still be some phonetic and typographical changes. The errors are purely typographical, due to imperfection on the software program, and do not reflect any compromise in the patient's medical care. Dietary Evaluation Review Comments: Encourage and monitor PO intake to meet 75% of his needs Expected Outcomes/Goals: gradual wt gain. Plan discussed with: Patient, Other (TIFFANY Miller) RADHA GILMORE MD Dec 06, 2024 20:52
[2024-12-07] VITALS (9 sets, daily range): BP systolic 103–144; BP diastolic 58–110; PULSE 62–89; RESP 14–20; TEMP 97.5–99.5; O2SAT 94–98
[2024-12-07 06:43] LABS: Alanine Aminotransferase 19 U/L (7-40); Alkaline Phosphatase 72 U/L (46-116); Calcium 8.9 mg/dL (8.7-10.4); Carbon Dioxide 25 mmol/L (20-31); Chloride 103 mmol/L (98-107)
[2024-12-07 06:44] LABS: Anion Gap 10 (5-15); BUN/Creatinine Ratio 16.3 (10.0-20.0); Blood Urea Nitrogen 21 mg/dL (9-23); Glucose 103 mg/dL (74-106); Sodium 138 mmol/L (136-145); Total Protein 6.5 g/dL (5.7-8.2)
[2024-12-07 06:45] LABS: Albumin 3.9 g/dL (3.2-4.8); Aspartate Aminotransferase 17 U/L (13-40); Bilirubin, Total 0.6 mg/dL (0.2-1.0)
[2024-12-07 06:55] LABS: Basophils # (auto) 0 10 ^3/uL (0-0.2); Basophils % (auto) 0.7 % (0.0-2.0); Eosinophils # (auto) 0.4 10 ^3/uL (0-0.8); Eosinophils % (auto) 5.4 % (0.0-7.0); Hematocrit 40.9 % (41.0-53.0); Lymphocytes # (auto) 1.1 10 ^3/uL (0.4-5.4); Lymphocytes % (auto) 16.9 % (10.0-50.0); Mean Corpuscular Hemoglobin 30.9 pg (28.0-32.0); Mean Corpuscular Hgb Conc. 34.3 g/dL (32.0-36.0); Mean Corpuscular Volume 90.2 fL (80.0-100.0); Monocytes # (auto) 0.4 10 ^3/uL (0-1.3); Monocytes % (auto) 6.6 % (0.0-12.0); Neutrophils # (auto) 4.7 10 ^3/uL (1.6-8.6); Neutrophils % (auto) 70.4 % (37.0-80.0); Nucleated Red Blood Cells % 0.1 %; Platelet Count (auto) 227 10^3/uL (140-450); Red Blood Cells 4.54 10^6/uL (4.5-5.90); Red Cell Distribution Width 13.1 % (11.8-14.3); White Blood Cell 6.7 10^3/uL (4.4-10.8)
[2024-12-07 08:07] LABS: PSA Free 3.34 ng/mL; Prostate Specific Antigen 36.8 ng/mL (0.0-4.0)
--- NOTE | 2024-12-07 08:37 | DVHPN2 ---
Reviewed: Care Plan, H&P, Labs, Medications, Previous Orders, Radiology Changes from previous H/P or p: No Changes Respiratory: Shortness of breath Objective Vitals Vital Signs Date Time Temp Pulse Resp B/P (MAP) Pulse Ox O2 Delivery O2 Flow Rate FiO2 12/07/24 05:00 97.6 82 18 142/85 (104) 97 97.6 12/06/24 20:00 Nasal Cannula* 2 28 Intake/Output Intake and Output 12/07/24 07:00 Intake Total 1720 ml Output Total 1750 ml Balance -30 ml Intake Oral 1420 ml IV Total 300 ml Output Urine Total 1750 ml # Voids 4 # Bowel Movements 1 Medications Current Medications Medications Dose Ordered Sig/Artemio Route Start Time Stop Time Status Last Admin Dose Admin Heparin Sodium/ Dextrose 250 ml @ 12.87 mls/ hr [id number] IV 12/02/24 09:45 UNV Acetaminophen/ Hydrocodone Bitart 1 tab Q4HP PRN PO 12/02/24 09:30 Ondansetron HCl 4 mg Q4HP PRN IV 12/02/24 09:30 Acetaminophen 650 mg Q6HP PRN PO 12/02/24 09:30 Nitroglycerin 0.4 mg Q5MINP PRN SL 12/02/24 09:30 Morphine Sulfate 2 mg Q30M PRN IV 12/02/24 09:30 Ceftriaxone Sodium 50 ml @ 100 mls/hr DAILY@09 IV 12/02/24 09:30 12/06/24 09:39 100 MLS/HR Azithromycin 250 ml @ 125 mls/hr DAILY IV 12/02/24 09:30 12/06/24 11:23 125 MLS/HR Atorvastatin Calcium 20 mg HS PO 12/03/24 22:00 12/06/24 21:29 20 MG Sacubitril/ Valsartan 0.5 tab BID PO 12/05/24 22:00 12/06/24 21:30 0.5 TAB Carvedilol 3.125 mg Q12HR PO 12/05/24 22:00 12/06/24 21:28 3.125 MG Spironolactone 12.5 mg DAILY PO 12/06/24 10:00 12/06/24 09:41 12.5 MG Empaglifozin 10 mg DAILY PO 12/06/24 10:00 12/06/24 09:39 10 MG Furosemide 20 mg DAILY PO 12/06/24 10:00 12/06/24 09:41 20 MG Apixaban 5 mg BID PO 12/13/24 22:00 Laboratory Results Laboratory Tests 12/07/24 06:08 Chemistry Test 12/07/24 06:08 Albumin 3.9 g/dL (3.2-4.8) Calcium Level 8.9 mg/dL (8.7-10.4) Total Protein 6.5 g/dL (5.7-8.2) LFT Test 12/07/24 06:08 Alanine Aminotransferase (ALT) 19 U/L (7-40) Alkaline Phosphatase 72 U/L (46-116) Aspartate Amino Transferase (AST) 17 U/L (13-40) Total Bilirubin 0.6 mg/dL (0.2-1.0) Urinalysis Test 12/05/24 03:45 Urine Color Light-brown (Yellow) Urine Clarity Turbid (Clear) H Urine pH 5.5 (5.0-9.0) Urine Specific [place] 1.016 (1.001-1.035) Urine Protein Trace (Negative) H Urine Ketones Negative (Negative) Urine Blood 3+ /uL (Negative) H Urine Nitrite Negative (Negative) Urine Bilirubin Negative (Negative) Urine Urobilinogen Normal mg/dL (Negative) Urine Leukocyte Esterase Negative /uL (Negative) Urine RBC 2277 /hpf (0 - 3) Urine Microscopic WBC 7 /HPF (0-3) H Urine Squamous Epithelial Cells None seen /hpf (<5) Urine Bacteria Few /hpf (None Seen) H Urine Glucose Normal mg/dL (Normal) Microbiology Microbiology Date/Time Source Procedure Growth Status 12/02/24 10:43 Blood Blood Culture - Preliminary NO GROWTH AFTER 72 HOURS OF INCUBATION. Resulted Labs and/or images reviewed: Labs reviewed by me, Image(s) reviewed by me Assessment/Plan Assessment/Plan Acute hypoxic respiratory failure secondary to bilateral pulmonary emboli: Oxygen by nasal cannula D-dimer elevated at 20 Acute bilateral pulmonary emboli: Heparin discontinued and started on Eliquis per protocol INTERVENTIONAL RADIOLOGY DR. ROSEN NOTES: "Heart RV venogram shows the RVOT and the pulmonary artery. However the pigtail catheter was unable to access into the pulmonary artery. In combination with sensitivity of the heart rate with PVC and brief bradycardia to 40s, the pulmonary embolectomy was aborted"nfra-renal IVC filter placement was performed." Status post IVC filter placement DVT right lower extremity Enlarged prostate with PSA 36 rule out prostate cancer consult for Urology CEA and CA 19-[address]-elevation [place] with troponin 372 type 2 [place] consult by sheetfed press operator transitional studies instructor Dr. Barba appreciated Chronic compensated HFrEF newly diagnosed Pulmonary arterial hypertension Cardiomyopathy: Needs left heart catheterization, has appointment with Dr. Dailey 12-21-24 at 0930 Hyperlipidemia : New diagnosis Sepsis possibly secondary to community-acquired pneumonia: Rocephin azithromycin Noncompliance: Patient has not seen any Dr for the last five years.Seen Dr Aaron five years ago. 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
--- NOTE | 2024-12-07 09:51 | DVH ---
Exam: US BLADDER History: Prominent ureters by CT Comparison: None Date: 12/07/2024 08:35 AM Technique: Grayscale and color Doppler ultrasound of the pelvis was obtained. Pre-and postvoid images of the bladder were obtained. Findings: Prevoid bladder is well distended and unremarkable. The postvoid bladder, demonstrates no significan t post void residual. Prostate measures 4 x 4 x 4 cm. IMPRESSION: No significant post void residual noted. Prostate protruding into the bladder. Bladder diverticulum is noted. This corresponds to the findings on the CT dated 12/06/2024. Correlate with PSA. END IMPRESSION:
[2024-12-07 09:52] LABS: Urine Bacteria None Seen /hpf (None Seen)
[2024-12-07 10:02] LABS: Urine Blood 3+ /uL (Negative); Urine Clarity Turbid (Clear); Urine Color Colorless (Yellow); Urine Mucus FEW (None Seen); Urine Protein, UAD TRACE (Negative); Urine Specific Gravity 1.015 (1.001-1.035); Urine Squamous Epithelial Cell None Seen /hpf (<5); Urine Urobilinogen Normal (Negative); Urine WBC 17 /HPF (0-3); Urine pH 5.5 (5.0-9.0)
--- NOTE | 2024-12-07 18:03 | DVHINCON2 ---
Date of service: Dec 07, 2024 Referring Physician Hospitalist Reason for Consultation Elevated PSA 36.8 History of Present Illness Patient has lower urinary tract symptoms secondary to BPH. He has not had significant nocturia symptoms for many years. He reports urinary hesitancy and decreased sensation in his genitalia. He has PSA is reported to be 36.8 on 12/06/2024. Patient is currently on blood thinners for pulmonary embolism. 79-year-old male with no past medical history who presents to the ED with shortness of breath since Wednesday. Patient reports that he is unable to sleep and lie down flat due to the shortness of breath as well as walk as he gets winded pretty quickly. Patient's brought him in in a wheelchair. Patient reports that he does not use oxygen at home however upon examination patient on 2 L nasal cannula. Patient also has not been to a PCP in the last 5 years. Patient reports that his dad from liver cancer in his sister also had lung cancer and at the age of 22. Patient's also states that he only t akes multivitamins. Patient's spouse also at the bedside. Patient reports that he was in the [place]. Patient denies any chest pain, recent sick contacts, recent travels, recent ingestion of spoiled food, recent trauma or injury, abdominal pain, nausea, vomi ting, diarrhea, lightheadedness, weakness, or dizziness. Patient reported that he has epistaxis in his right naris once per month and has pressure in his head when he does get them. However currently he is not complaining of these symptoms. Past Medical History BPH Family History: Patient reports no known family medical history. Allergies: Coded Allergies: NO KNOWN ALLERGIES (Unverified , 12/02/24) Current Medications Current Medications Medications (Trade) Dose Ordered Sig/Artemio Route PRN Reason Start Time Stop Time Status Last Admin Apixaban (Eliquis) 5 mg BID PO 12/13/24 22:00 Review of Systems Respiratory: Shortness of breath Allergies: Coded Allergies: NO KNOWN ALLERGIES (Unverified , 12/02/24) Medications Current Medications Medications Dose Ordered Sig/Artemio Route Start Time Stop Time Status Last Admin Dose Admin Heparin Sodium/ Dextrose 250 ml @ 12.87 mls/ hr [id number] IV 12/02/24 09:45 UNV Heparin Sodium/ Dextrose 250 ml @ 13 mls/hr [id number] IV 12/02/24 10:15 Acetaminophen/ Hydrocodone Bitart 1 tab Q4HP PRN PO 12/02/24 09:30 UNV Ondansetron HCl 4 mg Q4HP PRN IV 12/02/24 09:30 UNV Acetaminophen 650 mg Q6HP PRN PO 12/02/24 09:30 UNV Morphine Sulfate 2 mg Q4HPRN PRN IV 12/02/24 09:30 UNV Nitroglycerin 0.4 mg Q5MINP PRN SL 12/02/24 09:30 UNV Morphine Sulfate 2 mg Q30M PRN IV 12/02/24 09:30 UNV Ceftriaxone Sodium 50 ml @ 100 mls/hr DAILY@09 IV 12/02/24 09:30 UNV Azithromycin 250 ml @ 125 mls/hr DAILY IV 12/02/24 09:30 UNV Vital Signs Vital Signs Date Time Temp Pulse Resp B/P (MAP) Pulse Ox O2 Delivery O2 Flow Rate FiO2 12/07/24 16:46 99.5 78 18 122/91 (101) 98 99.5 12/07/24 08:00 Nasal Cannula* 2 28 Physical Exam Vital Signs Date Time Temp Pulse Resp B/P (MAP) Pulse Ox O2 Delivery O2 Flow Rate FiO2 12/02/24 09:44 101 12/02/24 08:40 Nasal Cannula* 2 28 12/02/24 07:37 18 99 12/02/24 07:37 129/93 (105) 12/02/24 07:05 98.3 98.3 General Appearance: Alert, Oriented X3, Cooperative, mild distress HEENT: Atraumatic, PERRLA, EOMI, Mucous membr. moist/pink Respiratory: Normal air movement Cardiovascular: Normal S1, Normal S2, No murmurs Abdominal: Soft Extremities: Normal pulses Skin: No significant lesion Neuro: Normal gait, Normal speech, Normal tone, Sensation intact Psych/Mental Status: Mental status NL, Mood NL Labs/Diagnostic Data Labs Test 12/07/24 09:00 12/07/24 06:08 12/06/24 14:27 12/05/24 05:06 Range/Units Urine Color Colorless Yellow Urine Clarity Turbid H Clear Urine pH 5.5 5.0-9.0 Urine Specific [place] 1.015 1.001-1.035 Urine Protein Trace H Negative Urine Ketones Negative Negative Urine Blood 3+ H Negative /uL Urine Nitrite Negative Negative Urine Bilirubin Negative Negative Urine Urobilinogen Normal Negative mg/dL Urine Leukocyte Esterase Negative Negative /uL Urine RBC 743 0 - 3 /hpf Urine Microscopic WBC 17 H 0-3 /HPF Urine Squamous Epithelial Cells None seen <5 /hpf Urine Bacteria None seen None Seen /hpf Urine Mucus Few None Seen Urine Glucose 4+ H Normal mg/dL White Blood Count 6.7 4.4-10.8 10^3/uL Red Blood Count 4.54 4.5-5.90 10^6/uL Hemoglobin 14.0 13.5-17.5 g/dL Hematocrit 40.9 L 41.0-53.0 % Mean Corpuscular Volume 90.2 80.0-100.0 fL Mean Corpuscular Hemoglobin 30.9 28.0-32.0 pg Mean Corpuscular Hemoglobin Concent 34.3 32.0-36.0 g/dL Red Cell Distribution Width 13.1 11.8-14.3 % Platelet Count 227 140-450 10^3/uL Mean Platelet Volume 9.0 6.9-10.8 fL Neutrophils (%) (Auto) 70.4 37.0-80.0 % Lymphocytes (%) (Auto) 16.9 10.0-50.0 % Monocytes (%) (Auto) 6.6 0.0-12.0 % Eosinophils (%) (Auto) 5.4 0.0-7.0 % Basophils (%) (Auto) 0.7 0.0-2.0 % Neutrophils # (Auto) 4.7 1.6-8.6 10 ^3/uL Lymphocytes # (Auto) 1.1 0.4-5.4 10 ^3/uL Monocytes # (Auto) 0.4 0-1.3 10 ^3/uL Eosinophils # (Auto) 0.4 0-0.8 10 ^3/uL Basophils # (Auto) 0 0-0.2 10 ^3/uL Nucleated Red Blood Cells 0.1 % Sodium Level 138 136-145 mmol/L Potassium Level 4.0 3.5-5.1 mmol/L Chloride Level 103 98-107 mmol/L Carbon Dioxide Level 25 20-31 mmol/L Anion Gap 10 5-15 Blood Urea Nitrogen 21 9-23 mg/dL Creatinine 1.29 0.700-1.30 mg/dL Glomerular Filtration Rate Calc 56 >90 mL/min BUN/Creatinine Ratio 16.3 10.0-20.0 Serum Glucose 103 74-106 mg/dL Calcium Level 8.9 8.7-10.4 mg/dL Total Bilirubin 0.6 0.2-1.0 mg/dL Aspartate Amino Transferase (AST) 17 13-40 U/L Alanine Aminotransferase (ALT) 19 7-40 U/L Alkaline Phosphatase 72 46-116 U/L Total Protein 6.5 5.7-8.2 g/dL Albumin 3.9 3.2-4.8 g/dL Carcinoembryonic Antigen 1.93 <=5.0 ng/mL Free Prostate Specific Antigen 3.34 N/A ng/mL Percent Free Prostate Specific Ag 9.1 . % Prostate Specific Antigen Total 36.8 H 0.0-4.0 ng/mL Prothrombin Time 11.7 9.3-11.8 sec Prothrombin Time INR 1.12 0.9-1.15 Activated Partial Thromboplast Time 66.6 H 24.5-34.5 SEC Hemoglobin A1c 5.4 <5.7 % A1C Test 12/03/24 19:30 12/03/24 16:58 12/03/24 05:09 12/02/24 13:23 Range/Units Stool Occult Blood Positive Negative Stool Occult Blood Sample #3 Negative Influenza Type A Antigen Negative Negative Influenza Type B Antigen Negative Negative SARS-CoV-2 Antigen (Rapid) Negative NEGATIVE Triglycerides Level 86 < 150 mg/dL Cholesterol Level 178 < 200 mg/dL LDL Cholesterol 137 H < 100 mg/dL HDL Cholesterol 40 40-59 mg/dL Thyroid Stimulating Hormone (TSH) 3.02 0.55-4.78 uIU/mL Troponin I High Sensitivity 215 *H </=54 ng/L Hepatitis B Surface Antigen Negative Negative Hepatitis C Antibody Negative Negative Test 12/02/24 12:28 12/02/24 10:43 12/02/24 07:20 Range/Units Lactic Acid Level 1.7 0.4-2.0 mmol/L Erythrocyte Sedimentation Rate 10 0-20 mm/hr D-Dimer, Quantitative 20.44 H 0.0-0.49 mg/L FEU Magnesium Level 2.0 1.6-2.6 mg/dL Lactate Dehydrogenase 246 120-246 U/L C-Reactive Protein High Sensitivity 3.05 H <1.0 mg/dL B-Type Natriuretic Peptide 283.09 0-100 pg/mL CA 19-9 Antigen 12 0-35 U/mL Microbiology Date/Time Source Procedure Growth Status 12/02/24 10:43 Blood Blood Culture - Final NO GROWTH AFTER 5 DAYS OF INCUBATION. Complete Assessment Elevated PSA BPH Urinary hesitancy Slowing of urination Plan/Recommendation We will start Flomax 0.4 mg p.o. q.h.s. Patient will need prostate MRI and a 4K score to be arranged as outpatient If he needs prostate biopsy, we will place him on Lovenox therapy x3 days prior to the biopsy Plan discussed with: Patient, Spouse, Son CIELO GUZMÁN MD Dec 07, 2024 18:03
--- NOTE | 2024-12-07 23:40 | DVHPN2 ---
Progress Note - Dictate Date Seen: Dec 07, 2024 Medical Necessity Reason Pt with a Central, PICC or Fol: No Subjective [facility] Patient seen and examined at bedside. Remains on supplemental oxygen Overnight events reviewed. vital signs Vital Sign Date Time Temp Pulse Resp B/P (MAP) Pulse Ox O2 Delivery O2 Flow Rate FiO2 12/07/24 21:19 65 124/66 12/07/24 17:00 98.0 98.0 12/07/24 16:46 18 98 12/07/24 08:00 Nasal Cannula* 2 28 Total Intake and Output 12/06/24 12/06/24 12/07/24 15:00 23:00 07:00 Intake Total 300 ml 720 ml 700 ml Output Total 600 ml 1150 ml Balance 300 ml 120 ml -450 ml medications Current Medications Medications Dose Ordered Sig/Artemio Route Start Time Stop Time Status Last Admin Dose Admin Heparin Sodium/ Dextrose 250 ml @ 12.87 mls/ hr [id number] IV 12/02/24 09:45 UNV Acetaminophen/ Hydrocodone Bitart 1 tab Q4HP PRN PO 12/02/24 09:30 Ondansetron HCl 4 mg Q4HP PRN IV 12/02/24 09:30 Acetaminophen 650 mg Q6HP PRN PO 12/02/24 09:30 Nitroglycerin 0.4 mg Q5MINP PRN SL 12/02/24 09:30 Morphine Sulfate 2 mg Q30M PRN IV 12/02/24 09:30 Ceftriaxone Sodium 50 ml @ 100 mls/hr DAILY@09 IV 12/02/24 09:30 12/07/24 09:06 100 MLS/HR Azithromycin 250 ml @ 125 mls/hr DAILY IV 12/02/24 09:30 12/07/24 10:30 125 MLS/HR Atorvastatin Calcium 20 mg HS PO 12/03/24 22:00 12/07/24 21:18 20 MG Sacubitril/ Valsartan 0.5 tab BID PO 12/05/24 22:00 12/07/24 21:18 0.5 TAB Carvedilol 3.125 mg Q12HR PO 12/05/24 22:00 12/07/24 21:19 3.125 MG Spironolactone 12.5 mg DAILY PO 12/06/24 10:00 12/07/24 09:14 12.5 MG Empaglifozin 10 mg DAILY PO 12/06/24 10:00 12/07/24 09:13 10 MG Furosemide 20 mg DAILY PO 12/06/24 10:00 12/07/24 09:14 20 MG Apixaban 5 mg BID PO 12/13/24 22:00 Tamsulosin HCl 0.4 mg QPM PO 12/08/24 18:00 objective Gen.: Patient lying in bed in no apparent distress. On supplemental oxygen. Head: Normocephalic, atraumatic. Eyes: EOMI/PERRLA. Ears: Normal hearing. Normal anatomy. Neck/trachea: Trachea midline, supple. Nose: Normal external anatomy. Mouth: Moist mucous membranes. Chest: Decreased air entry bilaterally. No wheezing or rhonchi. Cardiovascular: Positive S1, positive S2. Regular rate and rhythm. Abdomen: Positive bowel sounds in all 4 quadrants. Soft, non-tender, non- distended. : Deferred. Rectal: Deferred. Skin: Warm, dry. Intact. Extremities: 2+ radial pulses bilaterally. No lower extremity edema. Neuro: Awake, alert, oriented x3. No gross motor or sensory deficits. Cranial nerves II through XII intact. Gait not assessed. laboratory and microbiology Laboratory Tests 12/07/24 06:08 Test 12/07/24 06:08 Range/Units Serum Glucose 103 74-106 mg/dL Assessment/Plan Impression: Acute hypoxic respiratory failure Dependence on supplemental oxygen Pulmonary emboli DVT, right lower extremity Non-ST elevation myocardial infarction Nonadherence Sepsis Pneumonia, likely gram negative Pulmonary hypertension 2/2 pulmonary embolism, RVSP 50 mmHg Congestive heart failure, EF of 25% Events: Remains on supplemental oxygen, 2 LPM NC Taper O2 as tolerated Assess for home oxygen requirements S/p IVC filter placement yesterday. IR recommendations appreciated. Continue anticoagulation On Eliquis Continue antibiotics Incentive spirometry PT evaluation. Patient is stable for discharge from the pulmonary standpoint. Follow up in 2 to 3 weeks as outpatient in Pulmonary office. Labs and imaging reviewed. Rest of plan as noted below. Plan: Supplemental oxygen Titrate to keep O2 sats above 92%. ECHO reviewed; revealed EF of 25-30% and RVSP of 48 mmHg. Cardiology recs appreciated S/p IVC filter IR recommendations appreciated. Continue anticoagulation Eliquis PO BID Continue antibiotics WBC within normal limits Incentive spirometry Diurese to euvolemia Monitor renal function. Monitor electrolytes. Supplement as necessary. Monitor ins and outs. DVT prophylaxis. Prognosis: Guarded given patient's multiple co-morbidities. Condition: Critical Rest of plan per hospitalist and other consultants. A total of 35 minutes of critical care time was spent reviewing the patient record, examining the patient, making a diagnostic and therapeutic plan, discussing this plan with the medical personnel, following up on diagnostic studies and following the patient for clinical stability excluding any and all procedures. At least 50% of this time was spent in direct, [id number] contact. Thank you, Dr. Murphy, for allowing me to participate in this patient's care. Further recommendations will depend on the patient's clinical course. Please do not hesitate to contact me if you have any questions or concerns. This medical document was created using an electronic medical record system with [employer] dictation system. Although these documentations are being carefully reviewed, there may still be some phonetic and typographical changes. The errors are purely typographical, due to imperfection on the software program, and do not reflect any compromise in the patient's medical care. Dietary Evaluation Review Comments: Encourage and monitor PO intake to meet 75% of his needs Expected Outcomes/Goals: gradual wt gain. Plan discussed with: Other (TIFFANY Valdez) Critical Care Time(min): 35 RADHA GILMORE MD Dec 07, 2024 23:40
[2024-12-08] VITALS (9 sets, daily range): BP systolic 88–128; BP diastolic 58–82; PULSE 54–79; RESP 17–19; TEMP 97.5–98.8; O2SAT 95–99
[2024-12-08 05:07] LABS: QuantiFERON-TB Gold Plus Negative (Negative)
--- NOTE | 2024-12-08 11:14 | DVHPN2 ---
Reviewed: Care Plan, H&P, Labs, Medications, Previous Orders, Radiology Changes from previous H/P or p: No Changes Respiratory: Shortness of breath Objective Vitals Vital Signs Date Time Temp Pulse Resp B/P (MAP) Pulse Ox O2 Delivery O2 Flow Rate FiO2 12/08/24 09:33 121/72 12/08/24 09:33 68 12/08/24 09:00 97.5 18 98 97.5 12/08/24 08:00 Nasal Cannula* 2 28 Intake/Output Intake and Output 12/08/24 07:00 Intake Total 1820 ml Output Total 350 ml Balance 1470 ml Intake Oral 1520 ml IV Total 300 ml Output Urine Total 350 ml # Voids 6 # Bowel Movements 1 Medications Current Medications Medications Dose Ordered Sig/Artemio Route Start Time Stop Time Status Last Admin Dose Admin Heparin Sodium/ Dextrose 250 ml @ 12.87 mls/ hr [id number] IV 12/02/24 09:45 UNV Acetaminophen/ Hydrocodone Bitart 1 tab Q4HP PRN PO 12/02/24 09:30 Ondansetron HCl 4 mg Q4HP PRN IV 12/02/24 09:30 Acetaminophen 650 mg Q6HP PRN PO 12/02/24 09:30 Nitroglycerin 0.4 mg Q5MINP PRN SL 12/02/24 09:30 Morphine Sulfate 2 mg Q30M PRN IV 12/02/24 09:30 Ceftriaxone Sodium 50 ml @ 100 mls/hr DAILY@09 IV 12/02/24 09:30 12/08/24 09:19 100 MLS/HR Azithromycin 250 ml @ 125 mls/hr DAILY IV 12/02/24 09:30 12/07/24 10:30 125 MLS/HR Atorvastatin Calcium 20 mg HS PO 12/03/24 22:00 12/07/24 21:18 20 MG Sacubitril/ Valsartan 0.5 tab BID PO 12/05/24 22:00 12/08/24 09:32 0.5 TAB Carvedilol 3.125 mg Q12HR PO 12/05/24 22:00 12/08/24 09:33 3.125 MG Spironolactone 12.5 mg DAILY PO 12/06/24 10:00 12/08/24 09:32 12.5 MG Empaglifozin 10 mg DAILY PO 12/06/24 10:00 12/08/24 09:33 10 MG Furosemide 20 mg DAILY PO 12/06/24 10:00 12/08/24 09:33 20 MG Apixaban 5 mg BID PO 12/13/24 22:00 Tamsulosin HCl 0.4 mg QPM PO 12/08/24 18:00 Laboratory Results Laboratory Tests 12/07/24 06:08 Urinalysis Test 12/07/24 09:00 Urine Color Colorless (Yellow) Urine Clarity Turbid (Clear) H Urine pH 5.5 (5.0-9.0) Urine Specific [place] 1.015 (1.001-1.035) Urine Protein Trace (Negative) H Urine Ketones Negative (Negative) Urine Blood 3+ /uL (Negative) H Urine Nitrite Negative (Negative) Urine Bilirubin Negative (Negative) Urine Urobilinogen Normal mg/dL (Negative) Urine Leukocyte Esterase Negative /uL (Negative) Urine RBC 743 /hpf (0 - 3) Urine Microscopic WBC 17 /HPF (0-3) H Urine Squamous Epithelial Cells None seen /hpf (<5) Urine Bacteria None seen /hpf (None Seen) Urine Mucus Few (None Seen) Urine Glucose 4+ mg/dL (Normal) H Microbiology Microbiology Date/Time Source Procedure Growth Status 12/02/24 10:43 Blood Blood Culture - Final NO GROWTH AFTER 5 DAYS OF INCUBATION. Complete Labs and/or images reviewed: Labs reviewed by me, Image(s) reviewed by me Assessment/Plan Assessment/Plan Acute hypoxic respiratory failure secondary to bilateral pulmonary emboli: Oxygen by nasal cannula D-dimer elevated at 20 Acute bilateral pulmonary emboli: Heparin discontinued and started on Eliquis per protocol INTERVENTIONAL RADIOLOGY DR. ROSEN NOTES: "Heart RV venogram shows the RVOT and the pulmonary artery. However the pigtail catheter was unable to access into the pulmonary artery. 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 Barba appreciated Chronic compensated HFrEF newly diagnosed Pulmonary arterial hypertension Cardiomyopathy: Needs left heart catheterization, has appointment with Dr. 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
--- NOTE | 2024-12-08 11:22 | DVHDS2 ---
Discharge Summary Date of Admission December 02, 2024 at 09:20 Date of Discharge: Dec 08, 2024 Admitting Diagnosis Shortness of breath Wounds: None Labs/Diagnostic Data: Laboratory Results Test 12/07/24 09:00 12/07/24 06:08 12/06/24 14:27 12/05/24 05:06 Urine Color Colorless (Yellow) Urine Clarity Turbid (Clear) Urine pH 5.5 (5.0-9.0) Urine Specific [place] 1.015 (1.001-1.035) Urine Protein Trace (Negative) Urine Ketones Negative (Negative) Urine Blood 3+ /uL (Negative) Urine Nitrite Negative (Negative) Urine Bilirubin Negative (Negative) Urine Urobilinogen Normal mg/dL (Negative) Urine Leukocyte Esterase Negative /uL (Negative) Urine RBC 743 /hpf (0 - 3) Urine Microscopic WBC 17 /HPF (0-3) Urine Squamous Epithelial Cells None seen /hpf (<5) Urine Bacteria None seen /hpf (None Seen) Urine Mucus Few (None Seen) Urine Glucose 4+ mg/dL (Normal) White Blood Count 6.7 10^3/uL (4.4-10.8) Red Blood Count 4.54 10^6/uL (4.5-5.90) Hemoglobin 14.0 g/dL (13.5-17.5) Hematocrit 40.9 % (41.0-53.0) Mean Corpuscular Volume 90.2 fL (80.0-100.0) Mean Corpuscular Hemoglobin 30.9 pg (28.0-32.0) Mean Corpuscular Hemoglobin Concent 34.3 g/dL (32.0-36.0) Red Cell Distribution Width 13.1 % (11.8-14.3) Platelet Count 227 10^3/uL (140-450) Mean Platelet Volume 9.0 fL (6.9-10.8) Neutrophils (%) (Auto) 70.4 % (37.0-80.0) Lymphocytes (%) (Auto) 16.9 % (10.0-50.0) Monocytes (%) (Auto) 6.6 % (0.0-12.0) Eosinophils (%) (Auto) 5.4 % (0.0-7.0) Basophils (%) (Auto) 0.7 % (0.0-2.0) Neutrophils # (Auto) 4.7 10 ^3/uL (1.6-8.6) Lymphocytes # (Auto) 1.1 10 ^3/uL (0.4-5.4) Monocytes # (Auto) 0.4 10 ^3/uL (0-1.3) Eosinophils # (Auto) 0.4 10 ^3/uL (0-0.8) Basophils # (Auto) 0 10 ^3/uL (0-0.2) Nucleated Red Blood Cells 0.1 % Sodium Level 138 mmol/L (136-145) Potassium Level 4.0 mmol/L (3.5-5.1) Chloride Level 103 mmol/L (98-107) Carbon Dioxide Level 25 mmol/L (20-31) Anion Gap 10 (5-15) Blood Urea Nitrogen 21 mg/dL (9-23) Creatinine 1.29 mg/dL (0.700-1.30) Glomerular Filtration Rate Calc 56 mL/min (>90) BUN/Creatinine Ratio 16.3 (10.0-20.0) Serum Glucose 103 mg/dL (74-106) Calcium Level 8.9 mg/dL (8.7-10.4) Total Bilirubin 0.6 mg/dL (0.2-1.0) Aspartate Amino Transferase (AST) 17 U/L (13-40) Alanine Aminotransferase (ALT) 19 U/L (7-40) Alkaline Phosphatase 72 U/L (46-116) Total Protein 6.5 g/dL (5.7-8.2) Albumin 3.9 g/dL (3.2-4.8) Carcinoembryonic Antigen 1.93 ng/mL (<=5.0) Free Prostate Specific Antigen 3.34 ng/mL (N/A) Percent Free Prostate Specific Ag 9.1 % (.) Prostate Specific Antigen Total 36.8 ng/mL (0.0-4.0) Prothrombin Time 11.7 sec (9.3-11.8) Prothrombin Time INR 1.12 (0.9-1.15) Activated Partial Thromboplast Time 66.6 SEC (24.5-34.5) Hemoglobin A1c 5.4 % A1C (<5.7) Test 12/03/24 19:30 12/03/24 16:58 12/03/24 05:09 12/02/24 13:23 Stool Occult Blood Positive (Negative) Stool Occult Blood Sample #3 (Negative) Influenza Type A Antigen Negative (Negative) Influenza Type B Antigen Negative (Negative) SARS-CoV-2 Antigen (Rapid) Negative (NEGATIVE) Triglycerides Level 86 mg/dL (< 150) Cholesterol Level 178 mg/dL (< 200) LDL Cholesterol 137 mg/dL (< 100) HDL Cholesterol 40 mg/dL (40-59) Thyroid Stimulating Hormone (TSH) 3.02 uIU/mL (0.55-4.78) Troponin I High Sensitivity 215 ng/L (</=54) Hepatitis B Surface Antigen Negative (Negative) Hepatitis C Antibody Negative (Negative) Test 12/02/24 12:28 12/02/24 10:43 12/02/24 07:20 TB Test (QFT) Gold Plus Negative (Negative) TB Test (QFT) Nil 0.04 IU/mL (.) TB Test (QFT) Mitogen >10.00 IU/mL (.) TB Test (QFT) Antigen 1 0.03 IU/mL (.) TB Test (QFT) Antigen 2 0.05 IU/mL (.) TB Test (QFT) Criteria Comment (.) Lactic Acid Level 1.7 mmol/L (0.4-2.0) Erythrocyte Sedimentation Rate 10 mm/hr (0-20) D-Dimer, Quantitative 20.44 mg/L FEU (0.0-0.49) Magnesium Level 2.0 mg/dL (1.6-2.6) Lactate Dehydrogenase 246 U/L (120-246) C-Reactive Protein High Sensitivity 3.05 mg/dL (<1.0) B-Type Natriuretic Peptide 283.09 pg/mL (0-100) CA 19-9 Antigen 12 U/mL (0-35) Other Laboratory Tests 12/07/24 06:08 Brief Hx & Hospital Course: 79-year-old male with no previous medical history never seen a Dr in the last few years came in for shortness of breaths found to have acute hypoxic respiratory failure. Found to have pulmonary embolus started on heparin weaned off to Eliquis. Seen by Cardiology. Also seen by pulmonology he also has DVT right lower extremity patient underwent IVC filter placement by the radiologist. Sand Analyst attempted pulmonary arterial thrombectomy but unsuccessful patient has a severe cardiomyopathy with the ejection fraction 25 percent and he has an appointment with the Dr. Dailey on 12/21/2024 at 9:30 a.m. patient getting Rocephin azithromycin for pneumonia. Being discharged to alf facility for rehab for IV antibiotics for pneumonia and for monitoring pulmonary embolism and DVT the plan acceptable with the patient and his at the bedside his son Ellis also at the bedside. Consults/Reason for consult Cardiology Pulmonology Urology Operations or Procedures Echocardiogram CT chest angiogram with contrast Deep venous ultrasound Condition at Discharge: Fair Final Diagnosis/Problems List Acute hypoxic respiratory failure secondary to bilateral pulmonary emboli: Oxygen by nasal cannula D-dimer elevated at 20 Acute bilateral pulmonary emboli: Heparin discontinued and started on Eliquis per protocol INTERVENTIONAL RADIOLOGY DR. ROSEN NOTES: "Heart RV venogram shows the RVOT and the pulmonary artery. However the pigtail catheter was unable to access into the pulmonary artery. In combination with sensitivity of the heart rate with PVC and brief bradycardia to 40s, the pulmonary embolectomy was aborted"nfra-renal IVC filter placement was performed." Status post IVC filter placement DVT right lower extremity Enlarged prostate with PSA 36 rule out prostate cancer consult for Urology CEA and CA 19-[address]-elevation MD with troponin 372 type 2 MD consult by patcher bowling ball personal insurance advisor Dr. Barba appreciated Chronic compensated HFrEF newly diagnosed Pulmonary arterial hypertension Cardiomyopathy: Needs left heart catheterization, has appointment with Dr. Dailey 12-21-24 at 0930 Hyperlipidemia : New diagnosis Sepsis possibly secondary to community-acquired pneumonia: Rocephin azithromycin Elevated PSA [address] Chowdhury advised outpatient follow up for prostate MRI and biopsy Noncompliance: Patient has not seen any Dr for the last five years Discharge Disposition: Group Home Facility Discharge Instruct/Medications Diet: Cardiac 2g Na,low cholest Activity: Light activity Follow Up/Referral: Follow up with the care home Medications: see list 35 (Time taken for discharge summary 35 minutes) Discharge Statement: "Patient was advised to return to the ER or call 911 if any headaches, dizziness, shortness of breath, chest pain, abdominal pain, bleeding, fevers, or worsening of medical condition. Patient was counseled about treatment plan, medications, possible side effects, patientverbalized understanding. All questions were answered to the best of my ability. This discharge took greater then 30 minutes in planning, reviewing documentation, counseling the patient, and discussing with other team members." ASSESSMENT ASSESSMENT Hospital Course Improved Assessment Acute hypoxic respiratory failure secondary to bilateral pulmonary emboli: Oxygen by nasal cannula D-dimer elevated at 20 Acute bilateral pulmonary emboli: Heparin discontinued and started on Eliquis per protocol INTERVENTIONAL RADIOLOGY DR. ROSEN NOTES: "Heart RV venogram shows the RVOT and the pulmonary artery. However the pigtail catheter was unable to access into the pulmonary artery. In combination with sensitivity of the heart rate with PVC and brief bradycardia to 40s, the pulmonary embolectomy was aborted"nfra-renal IVC filter placement was performed." Status post IVC filter placement DVT right lower extremity Enlarged prostate with PSA 36 rule out prostate cancer consult for Urology CEA and CA 19-[address]-elevation MD with troponin 372 type 2 MD consult by patcher bowling ball personal insurance advisor Dr. Babra appreciated Chronic compensated HFrEF newly diagnosed Pulmonary arterial hypertension Cardiomyopathy: Needs left heart catheterization, has appointment with Dr. Dailey 12-21-24 at 0930 Hyperlipidemia : New diagnosis Sepsis possibly secondary to community-acquired pneumonia: Rocephin azithromycin Elevated PSA [address] Chowdhury advised outpatient follow up for prostate MRI and biopsy Noncompliance: Patient has not seen any Dr for the last five years Date of Service: Dec 08, 2024 Billing Provider: JOSE EDUARDO ROGERS MD Common Visit Codes: 70672-MVK/OBS DISCH DAY >30min JOSE EDUARDO ROGERS MD Dec 08, 2024 11:22
[2024-12-08] MEDS: APIXABAN 5 MG TAB PO SCH (11:59)
[2024-12-08] MEDS: TAMSULOSIN HYDROCHLORIDE 0.4 MG CAP PO SCH (18:38)
--- NOTE | 2024-12-08 21:42 | DVHPN2 ---
Progress Note - Dictate Date Seen: Dec 08, 2024 Medical Necessity Reason Pt with a Central, PICC or Fol: No Subjective [facility] Patient seen and examined at bedside. Remains on supplemental oxygen Overnight events reviewed. vital signs Vital Sign Date Time Temp Pulse Resp B/P (MAP) Pulse Ox O2 Delivery O2 Flow Rate FiO2 12/08/24 17:00 98.0 63 17 128/70 (89) 98 98.0 12/08/24 08:00 Nasal Cannula* 2 28 Total Intake and Output 12/07/24 12/07/24 12/08/24 15:00 23:00 07:00 Intake Total 300 ml 800 ml 720 ml Output Total 350 ml Balance 300 ml 800 ml 370 ml medications Current Medications Medications Dose Ordered Sig/Artemio Route Start Time Stop Time Status Last Admin Dose Admin Heparin Sodium/ Dextrose 250 ml @ 12.87 mls/ hr [id number] IV 12/02/24 09:45 UNV objective Gen.: Patient lying in bed in no apparent distress. On supplemental oxygen. Head: Normocephalic, atraumatic. Eyes: EOMI/PERRLA. Ears: Normal hearing. Normal anatomy. Neck/trachea: Trachea midline, supple. Nose: Normal external anatomy. Mouth: Moist mucous membranes. Chest: Decreased air entry bilaterally. No wheezing or rhonchi. Cardiovascular: Positive S1, positive S2. Regular rate and rhythm. Abdomen: Positive bowel sounds in all 4 quadrants. Soft, non-tender, non- distended. : Deferred. Rectal: Deferred. Skin: Warm, dry. Intact. Extremities: 2+ radial pulses bilaterally. No lower extremity edema. Neuro: Awake, alert, oriented x3. No gross motor or sensory deficits. Cranial nerves II through XII intact. Gait not assessed. laboratory and microbiology Laboratory Tests 12/07/24 06:08 Test 12/07/24 06:08 Range/Units Serum Glucose 103 74-106 mg/dL Assessment/Plan Impression: Acute hypoxic respiratory failure Dependence on supplemental oxygen Pulmonary emboli DVT, right lower extremity Non-ST elevation myocardial infarction Nonadherence Sepsis Pneumonia, likely gram negative Pulmonary hypertension 2/2 pulmonary embolism, RVSP 50 mmHg Congestive heart failure, EF of 25% Events: Remains on supplemental oxygen, 2 LPM NC Taper O2 as tolerated Assess for home oxygen requirements S/p IVC filter placement on 12/06. IR recommendations appreciated. Continue anticoagulation for pulmonary embolism On Eliquis BID Continue antibiotics Incentive spirometry PT evaluation. Plan for SNF placement Patient is stable for discharge from the pulmonary standpoint. Follow up in 2 to 3 weeks as outpatient in Pulmonary office. Labs and imaging reviewed. Rest of plan as noted below. Plan: Supplemental oxygen Titrate to keep O2 sats above 92%. ECHO reviewed; revealed EF of 25-30% and RVSP of 48 mmHg. Cardiology recs appreciated S/p IVC filter IR recommendations appreciated. Continue anticoagulation Eliquis PO BID Continue antibiotics WBC within normal limits Incentive spirometry Diurese to euvolemia Monitor renal function. Monitor electrolytes. Supplement as necessary. Monitor ins and outs. DVT prophylaxis. Prognosis: Guarded given patient's multiple co-morbidities. Rest of plan per hospitalist and other consultants. Thank you, Dr. Murphy, for allowing me to participate in this patient's care. Further recommendations will depend on the patient's clinical course. Please do not hesitate to contact me if you have any questions or concerns. This medical document was created using an electronic medical record system with [employer] computerized dictation system. Although these documentations are being carefully reviewed, there may still be some phonetic and typographical changes. The errors are purely typographical, due to imperfection on the software program, and do not reflect any compromise in the patient's medical care. Dietary Evaluation Review Comments: Encourage and monitor PO intake to meet 75% of his needs Expected Outcomes/Goals: gradual wt gain. Plan discussed with: Patient, Other (TIFFANY Valdez) RADHA GILMORE MD Dec 08, 2024 21:42
[2024-12-13] MEDS ORDERED: APIXABAN 5 MG TAB PO SCH (22:00)
== END 2024-12-08 19:00 | DRG 871 ==
LOC: ER 05:40 → OVERFLOW 09:20 → TELE-EAST 16:00
PROVIDERS: ADMIT Family Medicine; ATTEND Family Medicine
PROC: 06H03DZ Insertion of Intraluminal Device into Inferior Vena Cava, Percutaneous Approach (ICD-10-PCS; principal; 2024-12-05)
PROC: B5191ZZ Fluoroscopy of Inferior Vena Cava using Low Osmolar Contrast (ICD-10-PCS; 2024-12-05)
PROC: B51V1ZZ Fluoroscopy of Other Veins using Low Osmolar Contrast (ICD-10-PCS; 2024-12-05)
DX: A41.50 Gram-negative sepsis, unspecified (principal); I21.A1 Myocardial infarction type 2; I26.99 Other pulmonary embolism without acute cor pulmonale; J96.01 Acute respiratory failure with hypoxia; J15.69 Pneumonia due to other Gram-negative bacteria; N17.9 Acute kidney failure, unspecified; I82.411 Acute embolism and thrombosis of right femoral vein; I50.22 Chronic systolic (congestive) heart failure; I42.9 Cardiomyopathy, unspecified; Z20.822 Contact with and (suspected) exposure to COVID-19; E78.5 Hyperlipidemia, unspecified; I27.21 Secondary pulmonary arterial hypertension; N40.1 Benign prostatic hyperplasia with lower urinary tract symptoms; R32 Unspecified urinary incontinence; Z80.1 Family history of malignant neoplasm of trachea, bronchus and lung; Z80.0 Family history of malignant neoplasm of digestive organs; Z91.199 Patient's noncompliance with other medical treatment and regimen due to unspecified reason; Z99.81 Dependence on supplemental oxygen; Z79.01 Long term (current) use of anticoagulants
CPT/HCPCS: 36415; 37619; 71046; 71250; 71275; 74176; 76857; 76937; 80053; 80061; 81001; 82270; 82378; 83036; 83605; 83615; 83735; 83880; 84154; 84443; 84484; 85025; 85379; 85610; 85652; 85730; 86141; 86301; 86803; 86850; 86900; 86901; 87040; 87340; 87426; 87804; 93005; 93306; 93970; 96365; 97110; 97116; 97163; 99152; 99291; C1769; C1894; G0378; J2250; Q9967

== ENCOUNTER 2025-01-18 09:12 | Outpatient (CLI) | payer MEDICARE ==
[~2025-01-18] VITALS: Ht 177.8 cm; Wt 68.0 kg
[2025-01-18] MEDS: REGADENOSON 0.4 MG/5 ML SYRG IV ONE ×2 (09:58→11:15)
--- NOTE | 2025-01-22 08:31 | DVHSR ---
APPROVED REPORT Exam: Nuclear Stress Test BMI: 0 Stress Test Details Stress Test: Pharmacologic stress testing performed using 0.4 mg of regadenoson per 5 mL given IV ov er 10 seconds. HR Resting HR: 60 bpmMax Heart Rate (APMHR): 139.155879 bpm Max HR Achieved: 112 bpmTarget HR (85% APMHR): 118.152135 bpm % of APMHR: 80.58 Recovery HR: 62 bpm BP Resting BP: 129/88 mmHg Recovery BP: 121/85 mmHg ECG Resting ECG: Sinus Rhythm Clinical Reason for Termination: Completed protocol Nurse Comments Recieved pt. from [employer]. A/Ox4 on RA. Connected to cardiac technician, VS stable. PIV flushes well. Re viewed POC. Pt. verbalized understanding of procedure including risks and side effects, agrees for st ress testing. Lexiscan stress test performed per protocol. [employer] tech administered Cardiolite. Pt. tolerated well . Pt. stable, no change on exam. VS returned to baseline. Transferred to [employer] via wheelchair w/ te ch. Stress ECG Conclusion lvef 43% moderate LV dysfunction inferior infarct remote, no major ischemia noted NM EXAM: Myocardial Perfusion REST/STRESS Imaging Protocol: Rest Tc-99m/Stress Tc-99m 1 day Resting Data Rest SPECT myocardial perfusion imaging was performed in supine position 45 minutes following the int ravenous injection of 10.5 mCi of Tc-99m Sestamibi. Time of rest injection: 10:00 Date: 01/18/2025 Time of rest imagin:45 Date: 01/18/2025 Administration Route: IV Administration Site: Left Arm Pharmacologic Stress Pharmacologic stress test was performed by injecting Regadenoson 0.4 mg IV push followed by the intra venous injection of 33.0 mCi of Tc-99m Sestamibi. Time of stress injection: 11:15 Date: 01/18/2025 Time of stress imagin:15 Date: 01/18/2025 Administration Route: IV Administration Site: Left Arm Gated Stress SPECT was performed 60 minutes after stress injection. The images were gated to evaluate regional wall motion and calculate left ventricular ejection fracti on. Stress only was performed in the Supine position. Nuclear Conclusion lvef 43% moderate LV dysfunction inferior infarct remote, no major ischemia noted
== END 2025-01-18 17:00 | disposition home or self-care (01) ==
LOC: XYW 09:12
PROVIDERS: ATTEND Internal Medicine
DX: I42.9 Cardiomyopathy, unspecified (principal)
CPT/HCPCS: 78452; 93017; A9500; J2785

== ENCOUNTER → 2025-03-06 | Day surgery (SDC) | payer MEDICARE ==
[2025-03-01 11:36] LABS: Hematocrit 44.0 % (41.0-53.0); Hemoglobin 14.8 g/dL (13.5-17.5); Mean Corpuscular Hemoglobin 30.5 pg (28.0-32.0); Mean Corpuscular Volume 90.4 fL (80.0-100.0); Nucleated Red Blood Cells % 0.1 %
[2025-03-01 11:45] LABS: Urine Protein, UAD Negative (Negative)
[2025-03-01 11:53] LABS: INR 1.01 (0.9-1.15); Partial Thromboplastin Time 28.2 SEC (24.5-34.5); Prothrombin Time 10.7 sec (9.3-11.8)
[2025-03-01 12:03] LABS: Alanine Aminotransferase 14 U/L (7-40); Albumin 4.2 g/dL (3.2-4.8); Alkaline Phosphatase 61 U/L (46-116); Anion Gap 4 (5-15); BUN/Creatinine Ratio 12.6 (10.0-20.0); Bilirubin, Total 0.8 mg/dL (0.2-1.0); Blood Urea Nitrogen 15 mg/dL (9-23); Calcium 9.0 mg/dL (8.7-10.4); Carbon Dioxide 29 mmol/L (20-31); Glucose 94 mg/dL (74-106); Potassium 4.4 mmol/L (3.5-5.1); Sodium 141 mmol/L (136-145); Total Protein 6.9 g/dL (5.7-8.2)
[2025-03-01 12:04] LABS: Chloride 108 mmol/L (98-107)
[~2025-03-06] VITALS: Ht 177.8 cm; Wt 67.1 kg
[~2025-03-06] MED LIST: APIX5TAB PO; ATOR20TA50 PO; CARV3.1240 PO; EMPA1TAB PO; FURO20TA3 PO; MIDAZOLAM HCL 2MG/2ML 2ml VIAL (1mg/ml) ONE; NITR0.4S29 SL; PROPOFOL 10 MG/ML 20 ML IV ONE; SACU1TAB PO; SPIR25TA8 PO; TAMS0.4C39 PO; fentaNYL CITRATE 100 MCG/2 ML VL ONE
[2025-03-06] MEDS: CIPROFLOXACIN 400MG/200ML 200 ML IV ONE (12:44)
--- NOTE | 2025-03-06 13:14 | DVHNC2 ---
Procedure - OPERATIVE REPORT Pre-op. Diagnosis: LUTS ELEVATED PSA Post-op. Diagnosis: LUTS ELEVATED PSA BPH- large median lobe Operation: Cystoscopy TRUS prostate biopsy Anesthesia: MAC Indications: Patient with history of elevated PSA, s/p TRUS prostate biopsy that was negative in 2017, who had an increase in PSA. Patient also has history of lower urinary tract symptoms with hesitancy, occasional straining, incomplete bladder emptying, nocturia. Benefits and risks of procedures were discussed with the patient who understood and agreed with surgery. Details of Procedure: Patient was brought to the OR and placed in supine position in the OR table. Anesthesia was induced and patient was placed in lithotomy position. He was prepped and draped in sterile fashion. Using a 21 Fr. rigid cystoscope with a 30 degree lens we entered the urethra and in to the bladder. The prostate was found to be enlarged with 6-1/2 cm prostatic fossa and enlarged median lobe prostate. The bladder was found to have mild to moderate trabeculations, no foreign bodies, no lesions, bilateral ureteral orifices in orthotopic position. The bladder was emptied through the cystoscope sheath. At this point using an ultrasound probe with a biopsy guide we proceeded to enter the rectum. The prostate was measured as 154 cc. There no hypoechoic areas. . At this point we proceeded to take 16 cores samples from the prostate from the right base lateral, right base medial, right mid lateral, right mid medial, right apex lateral, right apex medial and subsequently the same areas on the left. Patient tolerated the procedure well and was transferred to recovery awake and in stable conditions. Specimens: Prostate tissue from the above areas total of 16 cores Complications: None Findings: As above Notes: Patient will need prostate artery embolization for BPH management. If he is found to have prostate cancer, PAE will be beneficial in downsizing his 154 gram prostate for radiation therapy. CIELO GUZMÁN MD Mar 06, 2025 13:14
--- NOTE | 2025-03-06 13:16 | DVHDS2 ---
New Physician D'charge PN Admitting Diagnosis Admitting Diagnosis Elevated PSA BPH Discharge Diagnosis Same Operations or Procedures Cystoscopy with transrectal ultrasound-guided prostate biopsy Reason(s) For Hospitalization Surgery Treatment Plan Discharge Condition of Discharge Fair Disposition Home Discharge Instructions Diet: Regular Activity: Light activity Activity comment: As tolerated Medications: Cipro given Follow Up Care Follow Up/Referral: Follow-up for biopsy results Discharge Statement: "Patient was advised to return to the ER or call 911 if any headaches, dizziness, shortness of breath, chest pain, abdominal pain, bleeding, fevers, or worsening of medical condition. Patient was counseled about treatment plan, medications, possible side effects, patientverbalized understanding. All questions were answered to the best of my ability. This discharge took greater then 30 minutes in planning, reviewing documentation, counseling the patient, and discussing with other team members." CIELO GUZMÁN MD Mar 06, 2025 13:16
[2025-03-06 13:40] VITALS: PULSE 62; RESP 12; TEMP 97.5; O2SAT 98
[2025-03-06 13:55] VITALS: PULSE 71; RESP 16; O2SAT 98
[2025-03-06 14:25] VITALS: BP 149/83; RESP 19; O2SAT 99
== END | disposition home or self-care (01) ==
LOC: SUR 06:58
PROVIDERS: ATTEND Urology
DX: C61 Malignant neoplasm of prostate (principal); R97.20 Elevated prostate specific antigen [PSA]; N40.1 Benign prostatic hyperplasia with lower urinary tract symptoms; R39.11 Hesitancy of micturition; R39.14 Feeling of incomplete bladder emptying; R39.16 Straining to void; R35.1 Nocturia; I50.9 Heart failure, unspecified; Z79.899 Other long term (current) drug therapy
CPT/HCPCS: 36415; 55700; 80053; 81001; 85025; 85610; 85730; 87086; 88305; 88342; A4344; J0744; J1100; J2250; J2704; J3010; J7030; 76872

== ENCOUNTER 2025-06-05 12:42 | Outpatient (CLI) | payer MEDICARE ==
[~2025-06-05 12:42] MED LIST changes: -MIDAZOLAM HCL 2MG/2ML 2ml VIAL (1mg/ml) ONE; -PROPOFOL 10 MG/ML 20 ML IV ONE; -fentaNYL CITRATE 100 MCG/2 ML VL ONE
[2025-06-05 14:24] LABS: Urine Protein, UAD 2+ (Negative)
== END 2025-06-05 17:00 | disposition home or self-care (01) ==
LOC: LAB 12:42
PROVIDERS: ATTEND Internal Medicine Medical Oncology
DX: C61 Malignant neoplasm of prostate (principal); Z79.899 Other long term (current) drug therapy
CPT/HCPCS: 81001; 87086